=== PATIENT | female | born 1990 | race Caucasian/White ===

== ENCOUNTER 2020-08-02 08:56 | Outpatient (CLI) | payer OTHER, SELFPAY ==
--- NOTE | 2020-08-02 | ECG_ITS ---
Measurements Intervals [place] Rate: 95 P: 19 DC: 150 QRS: 9 QRSD: 88 T: 1 QT: 362 QTc: 457 Interpretive Statements SINUS RHYTHM VOLTAGE CRITERIA FOR LVH BORDERLINE T WAVE ABNORMALITY- INFERIOR LEADS BASELINE WANDER- I, II, III, AVR, AVL, AVF, V4-V6 BORDERLINE ECG Electronically Signed On 08-02-2020 9:59:53 CONTRACT NEGOTIATOR by Augie Hollins D.O.
[2020-08-02 09:44] LABS: Basophils Absolute Auto 0.1 K/mm3 (0.0-0.1); Eosinophils Absolute Auto 0.6 K/mm3 (0-0.3); Eosinophils Percent Auto 6.2 % (0-4.4); Hematocrit 40.9 % (37.0-47.0); Hemoglobin 12.6 g/dL (12.0-15.0); Immature Granulocyte Absolute 0.02 K/mm3 (0.00-0.031); Immature Granulocyte Percent A 0.2 % (0-0.5); Lymphocytes Absolute Auto 2.17 K/mm3 (0.9-3.2); Lymphocytes Percent Auto 23.3 % (18.3-44.2); Mean Corpuscular HGB Conc 30.8 g/dl (32-36); Mean Corpuscular Hemoglobin 23.8 pg (26-34); Mean Corpuscular Volume 77.3 fl (80-100); Monocytes Absolute Auto 0.6 K/mm3 (0.1-0.6); Monocytes Percent Auto 6.5 % (2.6-8.5); Neutrophils Absolute Auto 5.9 K/mm3 (1.3-6.7); Neutrophils Percent Auto 62.8 % (45.5-73.1); Platelet Count Result 302 k/mm3 (150-375); Red Blood Count 5.29 M/mm3 (4.2-5.4); Red Cell Distribution Width 18.8 % (11.5-14.5); White Blood Count 9.3 K/mm3 (4.5-10.0)
[2020-08-02 09:55] LABS: Hemoglobin A1C 6.6 % (<5.7)
[2020-08-02 09:56] LABS: Alanine Aminotransferase 62 U/L (4-35); Albumin Level 3.8 g/dL (3.5-5.1); Alkaline Phosphatase 94 U/L (38-126); Anion Gap 7 mmol/L (8-16); Aspartate Amino Transferase 89 U/L (14-36); Bilirubin,Total 0.5 mg/dL (0.2-1.3); Blood Urea Nitrogen 7 mg/dL (7-17); Calcium 8.9 mg/dL (8.4-10.2); Carbon Dioxide 23 mmol/L (22-30); Chloride 107 mmol/L (98-107); Cholesterol 182 mg/dL (0-200); Estimated Glomerular Filt Rate > 60; Glucose 155 mg/dL (65-105); HDL Direct 39 mg/dL; Potassium 4.2 mmol/L (3.4-5.0); Sodium 137 mmol/L (137-145); Triglycerides 116 mg/dL (<150)
[2020-08-02 10:07] LABS: LDL Cholesterol Direct 137 mg/dL
[2020-08-02 10:24] LABS: Vitamin D 25 Hydroxy 15.2 ng/mL
[2020-08-02 11:04] LABS: Free T4 Free Thyroxine Reflex 1.15 ng/dL (0.78-2.19)
[2020-08-02 13:27] LABS: Total Triiodothyronine (T3) 1.64 NG/ML (0.97-1.69)
[2020-08-05 06:00] LABS: LH 6.2 mIU/mL (***); Prolactin 10.2 ng/mL (***)
[2020-08-05 14:28] LABS: Testosterone Free 5.6 pg/mL (0.1-6.4); Testosterone Total 60 ng/dL (2-45)
== END 2020-08-02 08:57 | disposition home or self-care (01) ==
PROVIDERS: PCP Nurse Practitioner; Visit Provider Nurse Practitioner
DX: R00.2 Palpitations (principal); E55.9 Vitamin D deficiency, unspecified; R63.5 Abnormal weight gain; R94.31 Abnormal electrocardiogram [ECG] [EKG]
CPT/HCPCS: 36415; 80053; 80061; 82306; 83001; 83002; 83036; 84146; 84402; 84403; 84439; 84443; 84480; 85025; 93005

== ENCOUNTER 2021-05-19 18:45 | Inpatient (IN) | payer OTHER, SELFPAY ==
--- NOTE | ~2021-05-19 | CT_ITS ---
EXAMINATION: CT abdomen pelvis w con DATE: 05/22/2021 09:56 INDICATION: Left lower quadrant abdominal pain. Diverticulitis. TECHNIQUE: Computed tomography (CT) of the abdomen and pelvis was performed with 100 mL Omnipaque 350 intravenous contrast. Automated exposure control and iterative reconstruction technique were employe d. The dose-length product was 1652.01 mGy-cm. COMPARISON: CT abdomen and pelvis 05/19/2021 FINDINGS: The visualized portions of the lung bases demonstrate mild atelectasis. No pleural effusion . The heart size is normal. No pericardial effusion. The liver, gallbladder, spleen, pancreas, adrena l glands, and kidneys are normal. There are no dilated loops of bowel. There is wall thickening of th e sigmoid colon with surrounding fat stranding. 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 There is mil d left para-aortic lymphadenopathy, likely reactive. For example, a node measures 13 x 14 mm. There i s no free intraperitoneal fluid. There is moderate thoracic spondylosis and mild lumbar spondylosis. There is mild chronic anterior wedging of multiple thoracic vertebral bodies. IMPRESSION: 1. Sigmoid diverticulitis with microperforation with 3.3 x 2.6 x 4.0 cm perisigmoid abscess comprised of stool with fistula to the bowel lumen. Reviewed, dictated and finalized at location B. [employer] IMPRESSION: 1. Sigmoid diverticulitis with microperforation with 3.3 x 2.6 x 4.0 cm perisig moid abscess comprised of stool with fistula to the bowel lumen.
--- NOTE | ~2021-05-19 | CT_ITS ---
EXAMINATION: CT abdomen pelvis w con DATE: 05/19/2021 20:26 INDICATION: Left lower quadrant abdominal pain. Nausea. TECHNIQUE: Computed tomography (CT) of the abdomen and pelvis was performed with 100 mL Omnipaque-350 intravenous contrast. Automated exposure control and iterative reconstruction technique were employe d. The dose-length product was 1535.62 mGy-cm. COMPARISON: 09/10/2017 FINDINGS: Lung bases are clear. Heart size normal. No pericardial or pleural effusion. Diffuse hepatic steatosi s. Liver, spleen, pancreas, bilateral adrenal glands and kidneys are normal. Normal retrocecal append ix. There is prominent wall thickening along the sigmoid colon surrounding a couple diverticula with prominent position from trace stranding consistent with diverticulitis. There is suggestion of few ti ny foci of of extraluminal gas in the region of likely phlegmonous change situated between the affect ed sigmoid colon and the left ovary. No more remote free intraperineal gas or organized/drainable abs cess. Remainder of the bowels are normal. Bladder, anteverted uterus and right adnexa are unremarkabl e. No pathologically enlarged abdominal or pelvic lymphadenopathy. Chronic mild anterior wedging at T 10. Mild thoracolumbar spondylosis. There are bridging osteophytes at multiple levels in the lower th oracic spine consistent with diffuse idiopathic skeletal hyperostosis (DISH). IMPRESSION: 1. Sigmoid diverticulitis with microperforation region of phlegmonous change but without drainable ab scess. Reviewed, dictated and finalized at location A. [employer] CONSULTANT IMPRESSION: 1. Sigmoid diverticulitis with microperforation region of phlegmonous change bu t without drainable abscess.
[2021-05-19 18:50] VITALS: BP 158/84; PULSE 97; RESP 12; TEMP 36.1; O2SAT 98
[2021-05-19 19:08] LABS: Basophils Absolute Auto 0.1 K/mm3 (0.0-0.1); Basophils Percent Auto 0.4 % (0.2-1.2); Eosinophils Absolute Auto 0.1 K/mm3 (0-0.3); Eosinophils Percent Auto 0.6 % (0-4.4); Hematocrit 40.3 % (37.0-47.0); Hemoglobin 13.2 g/dL (12.0-15.0); Immature Granulocyte Absolute 0.09 K/mm3 (0.00-0.031); Immature Granulocyte Percent A 0.6 % (0-0.5); Lymphocytes Absolute Auto 1.75 K/mm3 (0.9-3.2); Lymphocytes Percent Auto 10.8 % (18.3-44.2); Mean Corpuscular HGB Conc 32.8 g/dl (32-36); Mean Corpuscular Hemoglobin 27.3 pg (26-34); Mean Corpuscular Volume 83.4 fl (80-100); Mean Platelet Volume 11.9 fl (7.4-10.4); Monocytes Absolute Auto 1.3 K/mm3 (0.1-0.6); Monocytes Percent Auto 7.9 % (2.6-8.5); Neutrophils Absolute Auto 12.9 K/mm3 (1.3-6.7); Neutrophils Percent Auto 79.7 % (45.5-73.1); Platelet Count Result 275 k/mm3 (150-375); Red Blood Count 4.83 M/mm3 (4.2-5.4); Red Cell Distribution Width 15.3 % (11.5-14.5); White Blood Count 16.2 K/mm3 (4.5-10.0)
[2021-05-19 19:19] LABS: Alanine Aminotransferase 45 U/L (4-35); Albumin Level 4.5 g/dL (3.5-5.1); Alkaline Phosphatase 106 U/L (38-126); Anion Gap 8 mmol/L (8-16); Aspartate Amino Transferase 41 U/L (14-36); Bilirubin,Total 0.7 mg/dL (0.2-1.3); Blood Urea Nitrogen 5 mg/dL (7-17); Calcium 9.4 mg/dL (8.4-10.2); Carbon Dioxide 25 mmol/L (22-30); Chloride 101 mmol/L (98-107); Estimated CRCL calculation 198 ml/min; Estimated Glomerular Filt Rate > 60; Glucose 146 mg/dL (65-110); Lipase 86 U/L (23-300); Potassium 3.8 mmol/L (3.4-5.0); Sodium 134 mmol/L (137-145)
--- NOTE | 2021-05-19 19:53 | ED.ABDPAIN ---
HPI - Abdominal Pain General Chief Complaint: Abdominal Pain Stated Complaint: abd pain Time Seen by Provider: 05/19/21 19:24 Source: patient History of Present Illness HPI narrative: Patient presents with lower abdominal pain. Reports symptoms present for the past 3 days pain is sharp predominantly on the left side associated with constipation and diarrhea. There is no clear aggravating or modifying factors. Pain does radiate to her back. She denies any urinary symptoms. She does report some nausea but no vomiting. Reports history of IBS she also reports a history of diverticulitis a few years ago which improved with antibiotics. Reports a symptoms are very similar to prior diverticulitis symptoms. Related Data Home Medications Medication Instructions Recorded Confirmed dicyclomine 10 mg PO QID PRN 05/19/21 05/19/21 metoprolol tartrate 12.5 mg PO BID 05/19/21 05/19/21 ondansetron 4 mg PO QID 05/19/21 05/19/21 Allergies Allergy/AdvReac Type Severity Reaction Status Date / Time No Known Allergies Allergy Unknown Verified 05/19/21 23:52 Review of Systems Review of Systems: CONSTITUTIONAL: Denies fever, chills, or sweats. EYES: Denies visual changes, redness, or discharge. ENT: Denies rhinorrhea, congestion, sore throat, or otalgia. CARDIOVASCULAR: Denies chest pain, palpitations, or edema. RESPIRATORY: Denies cough or dyspnea. GASTROINTESTINAL: Reports abdominal pain, nausea, diarrhea, constipation GENITOURINARY: Denies dysuria or hematuria. SKIN: Denies rash or itching. MUSCULOSKELETAL: Denies back pain, joint pain, or myalgia. NEUROLOGIC: Denies headache, numbness, dizziness, or weakness. PSYCHIATRIC: Denies anxiety or depression. All systems reviewed & are unremarkable except as noted in HPI and below PMFSH Past Medical History Medical History Anxiety and depression Diverticulitis Fatty liver Hypertension Social History Social History Smoking packs per day: 1 Smoking cigarettes per day: 20.0 Years smoked: 15 Smoking pack-years: 15.00 Tobacco type: e-cigarettes/vaping Additional smoking assessment comments: Patient states that she is now vaping the past 2 months with no nicotine Alcohol intake: current Drinks per week: 28 Substance use: current Substance use type: marijuana Spiritual care concerns: No Exam Narrative: GENERAL: Well-appearing, well-nourished, and in no acute distress. HEAD: Normocephalic, atraumatic. EYES: PERRLA and EOMI. ENT: Nares clear, no rhinorrhea or epistaxis. Mucous membranes moist. NECK: Supple. No masses. No JVD CHEST: Clear to auscultation. No respiratory distress. No wheezes rales or rhonchi HEART: Regular rate and rhythm. No murmur heard. Normal peripheral pulses. ABDOMEN: Moderate tenderness in the lower abdomen most prominent in the left lower quadrant soft,nondistended, EXTREMITIES: Normal range of motion. No edema. SKIN: Warm, dry, no rash. NEURO: No focal deficits. Alert and oriented x3. PSYCH: Normal mood and affect. Course Reevaluation(s) Reevaluation #1: Patient resting results and plan reviewed with patient. Given perforation she will be admitted for IV antibiotics. Patient is comfortable with outpatient plan. Date: 05/19/21 Time: 21:25 Vital Signs Vital signs: Vital Signs Temperature 36.1 C L 05/19/21 18:50 Pulse Rate 97 05/19/21 18:50 Respiratory Rate 12 05/19/21 18:50 Blood Pressure 158/84 H 05/19/21 18:50 Pulse Oximetry 98 05/19/21 18:50 Temperature 36.1 C L 05/19/21 23:37 Pulse Rate 77 05/19/21 23:37 Respiratory Rate 18 05/19/21 23:37 Blood Pressure 149/66 H 05/19/21 23:37 Pulse Oximetry 99 05/19/21 23:37 MDM - Abdominal Pain MDM Narrative Medical decision making narrative: Patient presented with lower abdominal pain similar to her prior diverticulitis. Labs and imaging obtai
[2021-05-19] MEDS: SODIUM CHLORIDE 0.9% IV 1,000 ML 999 ML IV CONT (19:57)
[2021-05-19] MEDS: ONDANSETRON INJ 4 MG/2 ML VIAL IV PUSH (19:58)
[2021-05-19 20:24] LABS: Add Urine Microscopic? YES; Appearance Urine Cloudy (Clear); Bilirubin Urine Negative (Negative); Blood Urine Negative (Negative); Color Urine Yellow (Yellow); Glucose Urine UA Negative (Negative); Ketones Urine Negative (Negative); Leukocyte Esterase Ur Negative LEU/UL (Negative); Mucus Urine Rare /lpf; Nitrate Urine Negative (Negative); Protein Urine Negative (Negative); RBC Urine 0-2 /hpf (0-2); Specific Grav Ur 1.023 (1.001-1.035); Squamous Epithelial Cell Urine Many /hpf (Few)
[2021-05-19 21:12] VITALS: BP 124/77; PULSE 73; RESP 20; TEMP 36.9; O2SAT 97
[2021-05-19 23:30] VITALS: BP 131/80; PULSE 73; RESP 18; O2SAT 97
[2021-05-19 23:37] VITALS: BP 149/66; PULSE 77; RESP 18; TEMP 36.1; O2SAT 99; BMI 62.1
--- NOTE | 2021-05-19 23:40 | ADMGEN ---
This patient, Shabana Matthews, was admitted to Medical Room 341-01. Patient/family oriented to hospital policies and general routines including ID bracelet, bed and alarms, visiting hours, pain management, procedures, bathroom and other care routines, personal items, smoking policy, room service/diet, and visiting hours. Information on how to activate the Rapid Response Team has been discussed. Patient/Family are encouraged to report perceived risks to care and to ask questions if they do not understand what they are told or what they should do.
[2021-05-19] MEDS: MORPHINE SULFATE (*CRX) 4 MG/ML INJ IV PUSH (23:44)
[2021-05-19] MEDS: SODIUM CHLORIDE 0.9% IV 1,000 ML 125 ML IV CONT (23:48)
[2021-05-20] VITALS (9 sets, daily range): BP systolic 124–149; BP diastolic 50–95; PULSE 73–97; RESP 16–18; TEMP 35.9–36.7; O2SAT 98–100
[2021-05-20] MEDS: MORPHINE SULFATE (*CRX) 4 MG/ML INJ IV PUSH ×3 (02:12→19:17)
[2021-05-20 05:42] LABS: Basophils Absolute Auto 0.1 K/mm3 (0.0-0.1); Basophils Percent Auto 0.4 % (0.2-1.2); Eosinophils Absolute Auto 0.2 K/mm3 (0-0.3); Eosinophils Percent Auto 1.3 % (0-4.4); Hematocrit 36.2 % (37.0-47.0); Hemoglobin 11.6 g/dL (12.0-15.0); Immature Granulocyte Absolute 0.07 K/mm3 (0.00-0.031); Immature Granulocyte Percent A 0.5 % (0-0.5); Lymphocytes Absolute Auto 2.01 K/mm3 (0.9-3.2); Lymphocytes Percent Auto 15.3 % (18.3-44.2); Mean Corpuscular Hemoglobin 27.6 pg (26-34); Mean Platelet Volume 12.2 fl (7.4-10.4); Monocytes Absolute Auto 1.2 K/mm3 (0.1-0.6); Monocytes Percent Auto 9.1 % (2.6-8.5); Neutrophils Absolute Auto 9.7 K/mm3 (1.3-6.7); Neutrophils Percent Auto 73.4 % (45.5-73.1); Platelet Count Result 199 k/mm3 (150-375); Red Blood Count 4.21 M/mm3 (4.2-5.4); Red Cell Distribution Width 15.4 % (11.5-14.5); White Blood Count 13.1 K/mm3 (4.5-10.0)
[2021-05-20 05:47] LABS: Alanine Aminotransferase 34 U/L (4-35); Albumin Level 3.5 g/dL (3.5-5.1); Alkaline Phosphatase 81 U/L (38-126); Anion Gap 7 mmol/L (8-16); Aspartate Amino Transferase 30 U/L (14-36); Bilirubin,Total 0.5 mg/dL (0.2-1.3); Blood Urea Nitrogen 4 mg/dL (7-17); Calcium 8.2 mg/dL (8.4-10.2); Carbon Dioxide 24 mmol/L (22-30); Chloride 102 mmol/L (98-107); Estimated CRCL calculation 197 ml/min; Estimated Glomerular Filt Rate > 60; Glucose 155 mg/dL (65-110); Potassium 3.7 mmol/L (3.4-5.0); Sodium 133 mmol/L (137-145)
[2021-05-20] MEDS: SODIUM CHLORIDE 0.9% IV 1,000 ML 125 ML IV CONT (08:18)
--- NOTE | 2021-05-20 09:37 | PM.IMHP ---
H&P: HPI History of Present Illness Date/Time: 05/20/21 09:37 Chief Complaint: Lower abdominal pain Narrative: this is a 31-year-old woman who presented to the emergency department last night with lower abdominal pain over the past several days. She states that her pain started Thursday night and progressively worsened. She has had what she thought was a low-grade fever, but never took her temperature. She has had irregular bowel movements alternating between constipation and diarrhea, but this is chronic. She denies any blood in her stool. She denies any dysuria or hematuria. Her pain has improved somewhat since being admitted last night. She is passing flatus. She does report a history of diverticulitis about 3 years ago. She was diagnosed with a CT in the emergency department, but this was acute uncomplicated diverticulitis at that time and she was discharged home with oral antibiotics. She has never had a colonoscopy. Review of Systems Review of Systems: All systems reviewed & are unremarkable except as noted in HPI and below Constitutional: Constitutional: Denies chills, Reports fever(s) and Reports other ( Eating a poor diet lately) Eyes: Eyes: Denies change in vision ENT: Denies hearing loss, Denies neck pain and Denies sore throat Cardiovascular: Cardiovascular: Denies chest pain and Denies dyspnea Respiratory: Respiratory: Denies cough, Denies dyspnea, Denies wheezing and Reports other ( has sleep apnea) Gastrointestinal: Gastrointestinal: Reports as per HPI Genitourinary: Genitourinary: Denies hematuria and Denies dysuria Musculoskeletal: Musculoskeletal: Denies arthralgias, Denies joint swelling and Denies neck pain Allergic/Immunologic: Allergic/Immunologic: Denies wheezing [facility] Past Medical History Medical History (Updated 05/20/21 @ 09:47 by Fredi Griffiths DO) Adult BMI 60.0-69.9 kg/sq m Anxiety and depression Fatty liver Hypertension Obstructive sleep apnea Family History Family History (Updated 05/20/21 @ 09:44 by Fredi Griffiths DO) Mother Peptic ulcer disease Social History Social History Smoking packs per day: 1 Smoking cigarettes per day: 20.0 Years smoked: 20 Smoking pack-years: 20.00 Smoking status: Current every day smoker Tobacco type: cigarettes Additional smoking assessment comments: patient states she is down to about 2 cigarettes a day now for a year Alcohol intake: current Drinks per week: 28 Substance use: current Substance use type: marijuana Spiritual care concerns: No Meds Home Medications and Allergies Home Medications Medication Instructions Recorded Confirmed Type dicyclomine 10 mg PO QID PRN 05/19/21 05/19/21 History metoprolol tartrate 12.5 mg PO BID 05/19/21 05/19/21 History ondansetron 4 mg PO QID 05/19/21 05/19/21 History Allergies Allergy/AdvReac Type Severity Reaction Status Date / Time No Known Allergies Allergy Unknown Verified 05/19/21 23:52 Vital Signs Vital Signs - 24 hr 05/19/21 18:50 05/19/21 21:12 05/19/21 23:30 Temperature 36.1 C L 36.9 C Pulse Rate 97 73 73 Respiratory Rate 12 20 18 Blood Pressure 158/84 H 124/77 131/80 Pulse Oximetry 98 97 97 05/19/21 23:37 05/20/21 00:00 05/20/21 04:23 Temperature 36.1 C L 36.1 C L 35.9 C L Pulse Rate 77 77 92 Respiratory Rate 18 18 16 Blood Pressure 149/66 H 149/66 H 149/95 H Pulse Oximetry 99 99 99 Exam Const: General: alert; No acute distress Orientation/consciousness: patient oriented x3 Limitations: no limitations HENMT: Head: normocephalic and atraumatic Ears: hearing grossly normal bilaterally General nose exam: Normal external nose present and Normal nares present Mouth: Yes Normal oral and palatal mucosa present and Yes moist mucous membranes Eyes: General: appearance normal, both eyes and all related structures Conjunctivae: conjunctivae normal Sclera: sclerae miky
[2021-05-20] MEDS: METOPROLOL TARTRATE 12.5 MG TABLET PO ×2 (10:07→20:32)
[2021-05-20] MEDS: ENOXAPARIN 40 MG/0.4 ML SYRINGE SUB-Q (10:37)
[2021-05-20] MEDS: SODIUM CHLORIDE 0.9% IV 1,000 ML 150 ML IV CONT (16:10)
[2021-05-21] VITALS (7 sets, daily range): BP systolic 135–149; BP diastolic 62–97; PULSE 74–87; RESP 16–20; TEMP 36.5–37.4; O2SAT 96–100
[2021-05-21] MEDS: SODIUM CHLORIDE 0.9% IV 1,000 ML 150 ML IV CONT (00:45)
[2021-05-21] MEDS: ONDANSETRON INJ 4 MG/2 ML VIAL IV PUSH ×3 (02:52→22:04)
[2021-05-21 06:14] LABS: Hematocrit 35.9 % (37.0-47.0); Hemoglobin 11.4 g/dL (12.0-15.0); Mean Corpuscular HGB Conc 31.8 g/dl (32-36); Mean Corpuscular Hemoglobin 27.1 pg (26-34); Mean Corpuscular Volume 85.3 fl (80-100); Mean Platelet Volume 12.3 fl (7.4-10.4); Platelet Count Result 219 k/mm3 (150-375); Red Blood Count 4.21 M/mm3 (4.2-5.4); Red Cell Distribution Width 15.1 % (11.5-14.5); White Blood Count 11.1 K/mm3 (4.5-10.0)
[2021-05-21 06:43] LABS: Anion Gap 6 mmol/L (8-16); Blood Urea Nitrogen 5 mg/dL (7-17); Calcium 8.6 mg/dL (8.4-10.2); Carbon Dioxide 24 mmol/L (22-30); Chloride 103 mmol/L (98-107); Estimated CRCL calculation 197 ml/min; Estimated Glomerular Filt Rate > 60; Glucose 125 mg/dL (65-110); Potassium 3.8 mmol/L (3.4-5.0); Sodium 133 mmol/L (137-145)
[2021-05-21] MEDS: SODIUM CHLORIDE 0.9% IV 1,000 ML 100 ML IV CONT ×2 (08:14→21:22)
[2021-05-21] MEDS: ENOXAPARIN 40 MG/0.4 ML SYRINGE SUB-Q (08:18)
[2021-05-21] MEDS: METOPROLOL TARTRATE 12.5 MG TABLET PO ×2 (08:18→21:20)
[2021-05-21] MEDS: MORPHINE SULFATE (*CRX) 4 MG/ML INJ IV PUSH ×2 (13:59→22:04)
--- NOTE | 2021-05-21 15:52 | PM.PNGS ---
Progress Note: A&P Assessment and Plan (1) Diverticulitis of large intestine with perforation without abscess or bleeding: Code(s): K57.20 - Diverticulitis of large intestine with perforation and abscess without bleeding Status: Acute Assessment and Plan: Will start patient on clear liquids today. Repeat CBC in a.m.. Possibly advanced diet slowly over the next 1-2 days if pain resolving and labs improving. Continue IV Zosyn. (2) Obstructive sleep apnea: Code(s): G47.33 - Obstructive sleep apnea (adult) (pediatric) Status: Chronic (3) Adult BMI 60.0-69.9 kg/sq m: Code(s): Z68.44 - Body mass index [BMI] 60.0-69.9, adult Status: Chronic Subjective Subjective Date/Time Seen: 05/21/21 15:52 Interval history: Pain improved, but still having a little bit of left lower quadrant pain and was also experiencing nausea this morning. Passing flatus and bowels moving. Feeling thirsty. Exam GI: Inspection: non-distended GI Palp: Yes Soft to palpation, Yes Tenderness to palpation present (GI) (Left lower quadrant) and No Guarding due to palpation present (GI) Objective Data Vital Signs Vital Signs: Vital Signs - 24 hr 05/20/21 16:02 05/20/21 20:00 05/20/21 20:02 Temperature 36.3 C L 36.7 C Pulse Rate 73 78 86 Respiratory Rate 18 18 18 Blood Pressure 147/95 H 124/50 L Pulse Oximetry 99 100 100 05/20/21 20:32 05/21/21 06:00 05/21/21 08:18 Temperature 37.4 C Pulse Rate 78 80 78 Respiratory Rate 16 Blood Pressure 138/71 Pulse Oximetry 98 05/21/21 14:00 Temperature 36.7 C Pulse Rate 77 Respiratory Rate 20 Blood Pressure 135/62 Pulse Oximetry 100 Intake/Output Intake/Output: Intake & Output 05/18/21 05/19/21 05/20/21 05/21/21 23:59 23:59 23:59 23:59 Intake Total 1150 3425 1540 Output Total 900 Balance 1150 2525 1540 Meds/Results Medications: Active Medications Generic Name Dose Route Start Last Admin Trade Name Freq PRN Reason Stop Dose Admin Enoxaparin Sodium 40 mg 05/20/21 09:50 05/21/21 08:18 Enoxaparin 40 Mg/0.4 Ml Syringe SUB-Q 40 mg DAILY ROBYN Administration Sodium Chloride 1,000 mls @ 100 mls/hr 05/19/21 21:55 05/21/21 08:14 Normal Saline Iv IV CONT 100 mls/hr .Q10H ROBYN Administration Piperacillin/Tazobactam/Dextrose 3.375 gm in 50 mls @ 100 mls/hr 05/20/21 04:00 05/21/21 10:25 Zosyn 3.375 Gm/D5w 50ml Pm IVPB Infused Q6H ROBYN Infusion Acetaminophen 1,000 mg in 100 mls @ 400 mls/hr 05/20/21 22:19 05/21/21 08:29 Ofirmev 1,000 Mg Ivpb IVPB 05/21/21 22:18 Infused Q6H PRN Infusion Pain Rated 4-6 Metoprolol Tartrate 12.5 mg 05/20/21 09:00 05/21/21 08:18 Metoprolol Tartrate 12.5 Mg Tablet PO 12.5 mg Q12HR ROBYN Administration Morphine Sulfate 4 mg 05/19/21 21:51 05/21/21 13:59 Morphine Sulfate (*Crx) 4 Mg/Ml Inj IV PUSH 4 mg Q2H PRN Administration Pain Rated 7-10 Ondansetron HCl 4 mg 05/19/21 21:51 05/21/21 13:59 Ondansetron Inj 4 Mg/2 Ml Vial IV PUSH 4 mg Q4H PRN Administration Nausea Radiology Results: ITS Impressions Abdomen/Pelvis CT 05/19/21 20:53 IMPRESSION: 1. Sigmoid diverticulitis with microperforation region of phlegmonous change but without drainable abscess. Labs Labs: Laboratory Results - last 24 hr 05/21/21 05/21/21 05:41 05:41 WBC 11.1 H RBC 4.21 Hgb 11.4 L Hct 35.9 L MCV 85.3 MCH 27.1 MCHC 31.8 L RDW 15.1 H Plt Count 219 MPV 12.3 H Sodium 133 L Potassium 3.8 Chloride 103 Carbon Dioxide 24 Anion Gap 6 L BUN 5 L Creatinine 0.60 L Estim Creat Clear Calc 197 Estimated GFR > 60 Glucose 125 H Calcium 8.6
[2021-05-22] MEDS: ONDANSETRON INJ 4 MG/2 ML VIAL IV PUSH ×2 (02:56→14:55)
[2021-05-22] MEDS: ACETAMINOPHEN 500 MG TABLET 1000 MG PO (02:57)
[2021-05-22 05:30] VITALS: BP 147/95; PULSE 84; RESP 18; TEMP 36.6; O2SAT 98
[2021-05-22 06:57] LABS: Mean Corpuscular HGB Conc 32.4 g/dl (32-36); Mean Corpuscular Hemoglobin 27.1 pg (26-34); Mean Corpuscular Volume 83.7 fl (80-100); Mean Platelet Volume 12.3 fl (7.4-10.4); Platelet Count Result 227 k/mm3 (150-375); Red Blood Count 4.06 M/mm3 (4.2-5.4); Red Cell Distribution Width 14.9 % (11.5-14.5); White Blood Count 9.1 K/mm3 (4.5-10.0)
[2021-05-22 07:07] LABS: Anion Gap 7 mmol/L (8-16); Blood Urea Nitrogen 4 mg/dL (7-17); Calcium 8.4 mg/dL (8.4-10.2); Carbon Dioxide 23 mmol/L (22-30); Chloride 106 mmol/L (98-107); Estimated CRCL calculation 197 ml/min; Estimated Glomerular Filt Rate > 60; Glucose 133 mg/dL (65-110); Potassium 3.5 mmol/L (3.4-5.0); Sodium 136 mmol/L (137-145)
--- NOTE | 2021-05-22 09:05 | PM.PNGS ---
Progress Note: A&P Assessment and Plan (1) Diverticulitis of large intestine with perforation without abscess or bleeding: Code(s): K57.20 - Diverticulitis of large intestine with perforation and abscess without bleeding Status: Acute Assessment and Plan: patient still having some cramping abdominal pain. Will get repeat CT abdomen and pelvis with contrast today. Discussed that if CT does not show any worsening signs, we should be able to advance diet and possibly discharge this evening. Dietitian evaluation ordered to discuss low-fiber diet and high-fiber diet will have patient follow-up in 2 weeks and will discuss eventual colonoscopy once completely recovered (2) Adult BMI 60.0-69.9 kg/sq m: Code(s): Z68.44 - Body mass index [BMI] 60.0-69.9, adult Status: Chronic (3) Obstructive sleep apnea: Code(s): G47.33 - Obstructive sleep apnea (adult) (pediatric) Status: Chronic Subjective Subjective Date/Time Seen: 05/22/21 09:05 Interval history: Patient is still having some cramping abdominal pain and anxiety. Bowels moving but have been very small. No fevers. Exam GI: Inspection: obesity GI Palp: Yes Soft to palpation and Yes Tenderness to palpation present (GI) ( Left lower quadrant) Auscultation: normal bowel sounds Objective Data Vital Signs Vital Signs: Vital Signs - 24 hr 05/21/21 14:00 05/21/21 20:00 05/21/21 21:20 Temperature 36.7 C Pulse Rate 77 77 74 Respiratory Rate 20 20 Blood Pressure 135/62 Pulse Oximetry 100 100 05/21/21 22:00 05/21/21 22:51 05/22/21 05:30 Temperature 36.5 C 36.6 C Pulse Rate 87 84 Respiratory Rate 16 18 Blood Pressure 149/97 H 147/95 H Pulse Oximetry 98 96 98 Intake/Output Intake/Output: Intake & Output 05/19/21 05/20/21 05/21/21 05/22/21 23:59 23:59 23:59 23:59 Intake Total 1150 3425 3430 410 Output Total 900 900 Balance 1150 2525 3430 -490 Meds/Results Medications: Active Medications Generic Name Dose Route Start Last Admin Trade Name Freq PRN Reason Stop Dose Admin Acetaminophen 1,000 mg 05/22/21 02:53 05/22/21 02:57 Acetaminophen 500 Mg Tablet PO 1,000 mg Q6H PRN Administration Mild Pain (1-3) or Fever Hydrocodone Bitart/Acetaminophen 1 tab 05/22/21 02:54 Hydrocodone/Acetaminophen (*Crx) 5-325 Mg Tablet PO Q6H PRN Pain Rated 4-6 Alprazolam 0.25 mg 05/22/21 09:04 Alprazolam (*Crx) 0.25 Mg Tablet PO TID PRN Anxiety Enoxaparin Sodium 40 mg 05/20/21 09:50 05/21/21 08:18 Enoxaparin 40 Mg/0.4 Ml Syringe SUB-Q 40 mg DAILY ROBYN Administration Piperacillin/Tazobactam/Dextrose 3.375 gm in 50 mls @ 100 mls/hr 05/20/21 04:00 05/22/21 05:40 Zosyn 3.375 Gm/D5w 50ml Pm IVPB Infused Q6H ROBYN Infusion Metoprolol Tartrate 12.5 mg 05/20/21 09:00 05/21/21 21:20 Metoprolol Tartrate 12.5 Mg Tablet PO 12.5 mg Q12HR ROBYN Administration Morphine Sulfate 4 mg 05/19/21 21:51 05/21/21 22:04 Morphine Sulfate (*Crx) 4 Mg/Ml Inj IV PUSH 4 mg Q2H PRN Administration Pain Rated 7-10 Ondansetron HCl 4 mg 05/19/21 21:51 05/22/21 02:56 Ondansetron Inj 4 Mg/2 Ml Vial IV PUSH 4 mg Q4H PRN Administration Nausea Radiology Results: ITS Impressions Abdomen/Pelvis CT 05/19/21 20:53 IMPRESSION: 1. Sigmoid diverticulitis with microperforation region of phlegmonous change but without drainable abscess. Labs Labs: Laboratory Results - last 24 hr 05/22/21 05/22/21 05:58 05:58 WBC 9.1 RBC 4.06 L Hgb 11.0 L Hct 34.0 L MCV 83.7 MCH 27.1 MCHC 32.4 RDW 14.9 H Plt Count 227 MPV 12.3 H Sodium 136 L Potassium 3.5 Chloride 106 Carbon Dioxide 23 Anion Gap 7 L BUN 4 L Creatinine 0.60 L Estim Creat Clear Calc 197 Estimated GFR > 60 Glucose 133 H Calcium 8.4
[2021-05-22] MEDS: ALPRAZolam (*CRX) 0.25 MG TABLET PO (09:22)
[2021-05-22] MEDS: polyethylene glycoL 3350 17 GM POWD.PACK PO (09:22)
[2021-05-22 09:23] VITALS: PULSE 86
[2021-05-22] MEDS: ENOXAPARIN 40 MG/0.4 ML SYRINGE SUB-Q (09:23)
[2021-05-22] MEDS: METOPROLOL TARTRATE 12.5 MG TABLET PO ×2 (09:23→20:17)
[2021-05-22 14:00] VITALS: BP 142/90; PULSE 70; RESP 16; TEMP 36.6; O2SAT 99
[2021-05-22] MEDS: HYDROcodone/acetaminophen (*CRX) 5-325 MG TABLET 1 TAB PO (14:54)
[2021-05-22 20:00] VITALS: PULSE 80; RESP 16; O2SAT 99
[2021-05-22 20:17] VITALS: PULSE 80
[2021-05-22 21:34] VITALS: BP 145/75; PULSE 71; RESP 17; TEMP 36.1; O2SAT 100
[2021-05-22] MEDS: AMOXICILLIN/CLAVULANATE K 875-125 MG TAB 1 TABLET PO (23:14)
[2021-05-23 04:44] VITALS: BP 133/70; PULSE 69; RESP 16; TEMP 36.5; O2SAT 97
[2021-05-23 05:49] LABS: Hematocrit 35.6 % (37.0-47.0); Hemoglobin 11.2 g/dL (12.0-15.0); Mean Corpuscular HGB Conc 31.5 g/dl (32-36); Mean Corpuscular Volume 85.8 fl (80-100); Mean Platelet Volume 11.3 fl (7.4-10.4); Platelet Count Result 238 k/mm3 (150-375); Red Blood Count 4.15 M/mm3 (4.2-5.4); Red Cell Distribution Width 15.2 % (11.5-14.5); White Blood Count 8.5 K/mm3 (4.5-10.0)
[2021-05-23 07:50] VITALS: BP 143/88; PULSE 73; RESP 24; TEMP 36.7; O2SAT 97
[2021-05-23] MEDS: METOPROLOL TARTRATE 12.5 MG TABLET PO (08:25)
[2021-05-23] MEDS: ENOXAPARIN 40 MG/0.4 ML SYRINGE SUB-Q (08:25)
[2021-05-23] MEDS: polyethylene glycoL 3350 17 GM POWD.PACK PO (08:25)
[2021-05-23] MEDS: AMOXICILLIN/CLAVULANATE K 875-125 MG TAB 1 TABLET PO (08:25)
[2021-05-23] MEDS: ACETAMINOPHEN 500 MG TABLET 1000 MG PO (08:32)
--- NOTE | 2021-05-23 10:17 | PM.DS ---
DS: Admitting Diagnosis Discharge Date 05/23/2021 Admitting Diagnosis acute diverticulitis with perforation DS: Discharge Diagnosis Discharge Diagnosis (1) Diverticulitis of intestine with perforation and abscess: Code(s): K57.80 - Diverticulitis of intestine, part unspecified, with perforation and abscess without bleeding Status: Acute Assessment and Plan: exam markedly improved since admission, tolerating low fiber, continue antibiotics, home with antibiotics, p.o. analgesia, Colace, follow-up 2 weeks, will need interval colonoscopy (2) Adult BMI 60.0-69.9 kg/sq m: Code(s): Z68.44 - Body mass index [BMI] 60.0-69.9, adult Status: Chronic Assessment and Plan: continue to encourage lifestyle and dietary modifications (3) Obstructive sleep apnea: Code(s): G47.33 - Obstructive sleep apnea (adult) (pediatric) Status: Chronic Assessment and Plan: management per PCP DS: Summary Hospital Course Reason for hospitalization: acute diverticulitis with perforation Hospital Course: The patient is a 31-year-old female presenting to the emergency department on 05/19 complaining of severe lower abdominal pain. Workup in the emergency department, including imaging, was significant for acute diverticulitis with micro perforation. The patient was subsequently admitted to the surgical service and started on IV antibiotics. Upon evaluation, it was decided that the patient would be a good candidate for conservative management. The patient did well with IV antibiotics and we were able to subsequently slowly advance her diet. The patient's abdominal exam continued to improve throughout her hospitalization. A subsequent CT scan was ordered on 05/22, and did show a small abscess but no worsening of micro perforation. Given this, we advanced her to a low residual diet. On 05/23, the patient was tolerating a low residual diet and her exam continued to be completely benign. Her white count was also noted to be normal and she was up and ambulating without issue. Given this, she will be discharged home with continued p.o. antibiotics. She will also be sent home with a prescription for p.o. analgesia and Colace. She will follow up with Dr. Griffiths in 2 weeks. Status at Discharge Functional status at discharge: independent ambulation Overall status at discharge: patient is progressing back to baseline Time Spent with Patient Time attestation: Total time spent providing and/or coordinating discharge services: Time spent: Less than 30 minutes Exam Const: General: cooperative, comfortable and no acute distress Nutritional Appearance: obese Orientation/consciousness: patient oriented x3 Resp: Effort & Inspection: normal respiratory effort Auscultation: clear to auscultation bilaterally Cardio: Rate: regular rate Rhythm: regular rhythm GI: Inspection: normal to inspection and distended GI Palp: Yes Soft to palpation, No Tenderness to palpation present (GI), No Guarding due to palpation present (GI) and No Rigid due to palpation DS: Data Data Completed and Pending Labs on day of discharge: Labs from last 24 hours 05/23/21 05:36 WBC 8.5 RBC 4.15 L Hgb 11.2 L Hct 35.6 L MCV 85.8 MCH 27.0 MCHC 31.5 L RDW 15.2 H Plt Count 238 MPV 11.3 H Discharge Plan Discharge Attending physician on discharge: Fredi Griffiths Discharging Clinician: Kenyetta Mendez Anticipated Discharge Date/Time: 05/23/21 10:13 Patient Disposition: Home, Self-Care Activity: as tolerated Diet: low fiber Patient Instructions: Antibiotic Form, How to Stop Smoking (DC), Pain Management (DC) Stand Alone Forms: General Discharge Information Follow-up/Referrals: Fredi Griffiths DO [Physician] - 2 Weeks Discharge Medications: New amoxicillin-pot clavulanate [Augmentin] 875-125 mg tablet 1 tablet PO Q12H Qty: 20 RF: 0 hydrocodone-acetaminophen 5-325 mg tablet 1
[2021-05-23] MEDS: HYDROcodone/acetaminophen (*CRX) 5-325 MG TABLET 1 TAB PO (10:58)
== END 2021-05-23 11:28 | disposition home or self-care (01) | DRG 244 ==
LOC: ANHED 21:27 → ANH3MED 23:10
PROVIDERS: Emergency Medicine; Admitting Provider Surgery; Emergency Provider Emergency Medicine; PCP Nurse Practitioner; Visit Provider Surgery
DX: K57.80 Diverticulitis of intestine, part unspecified, with perforation and abscess without bleeding (principal); G47.33 Obstructive sleep apnea (adult) (pediatric); F41.8 Other specified anxiety disorders; K76.0 Fatty (change of) liver, not elsewhere classified; I10 Essential (primary) hypertension; F17.290 Nicotine dependence, other tobacco product, uncomplicated; Z68.44 Body mass index [BMI] 60.0-69.9, adult
CPT/HCPCS: 36415; 74177; 80048; 80053; 81001; 81025; 83690; 85025; 85027; 96361; 96365; 96366; 96367; 96372; 96375; 96376; 99285; A9270; G0378; G0379; J0131; J1650; J2270; J2405; J2543; J7030; Q9967

== ENCOUNTER 2021-06-25 13:15 | Outpatient (CLI) | payer OTHER, SELFPAY ==
--- NOTE | ~2021-06-25 | CT_ITS ---
EXAMINATION: CT abdomen pelvis w con INDICATION: Diverticulitis of the intestine with perforation TECHNIQUE: Computed tomographic images of the abdomen and pelvis were obtained after the administrati on of 100 cc of Omnipaque 350 intravenous contrast. The dose-length product (DLP) was 1620.08 mGy-cm. Automated exposure control and iterative reconstruction technique were employed. COMPARISON: 05/22/2021 FINDINGS: The lung bases are clear. The heart size is normal. The liver, spleen, pancreas, gallbladde r, and adrenal glands are normal. The kidneys are unremarkable. There is persistent wall thickening o f the sigmoid colon without significant change. There is a persistent mass of stool abutting the sigm oid colon which measures approximately 4.0 x 3.7 cm. An adjacent defect is seen in the wall of the si gmoid colon. There is surrounding inflammatory change. Mild left para-aortic lymphadenopathy persists without significant change. The appendix is normal.. There is mild lumbar spondylosis. Chronic anter ior wedging is noted in multiple lower thoracic vertebral bodies. IMPRESSION: 1. 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 Reviewed, dictated and finalized at location F. K SHOP SUPERVISOR IMPRESSION: 1. Sigmoid diverticulitis with persistent but not significantly changed perisig moid abscess containing stool with fistula to the sigmoid lumen again identifie d.
== END 2021-06-25 13:16 | disposition home or self-care (01) ==
PROVIDERS: PCP Nurse Practitioner; Visit Provider Surgery
DX: K57.20 Diverticulitis of large intestine with perforation and abscess without bleeding (principal)
CPT/HCPCS: 74177; Q9967

== ENCOUNTER 2021-08-26 20:09 | Emergency (ER) | payer OTHER, SELFPAY ==
--- NOTE | ~2021-08-26 | XR_ITS ---
XR chest 2V DATE: 08/27/2021 00:01 INDICATION: Leukocytosis TECHNIQUE: PA and lateral views COMPARISON: 06/09/2019 2 view chest borderline FINDINGS: Normal heart size. No hilar or mediastinal enlargement. No pulmonary infiltrate or consolid ation, pleural effusion or pulmonary vascular congestion or pneumothorax. Degenerative spurring of the thoracic spine. Chronic mild anterior wedging of some lower thoracic juan manuel tebral bodies. IMPRESSION: No active cardiopulmonary disease Reviewed, dictated and finalized at location A. ER HAND
--- NOTE | ~2021-08-26 | CT_ITS ---
EXAMINATION: CT abdomen pelvis w con DATE: 08/26/2021 23:57 INDICATION: Left lower quadrant abdominal pain TECHNIQUE: Computed tomography (CT) of the abdomen and pelvis was performed with 100 CC Omnipaque 350 intravenous contrast. Automated exposure control and iterative reconstruction technique were employe d. Exam dose: 1722.97 mGy-cm total exam DLP. COMPARISON: 06/25/2021 CT abdomen pelvis FINDINGS: There is persistent prominent inflammatory change in the region of the sigmoid colon includ ing thickening of the sigmoid colon, perisigmoid inflammatory stranding and a fecal-containing absces s cavity which is approximately 2.7 x 3.3 cm dimension. There is mildly increased perisigmoid fluid a ccumulation since 06/25/2021. Diverticulosis of the sigmoid and descending colon. There are nondilated fluid containing small bowel segments with air-fluid levels, likely due to adyna edvin ileus. Normal appendix. Small fat-containing umbilical hernia. Normal heart size. No pericardial or pleural effusion. The lung bases are clear. The liver, gallbladder, bile ducts, pancreas, pancreatic duct, spleen, adrenal glands and kidneys are unremarkable. Diffuse idiopathic skeletal hyperostosis of the thoracic spine. IMPRESSION: Persistent sigmoid diverticulitis with thickening of the sigmoid colon, with surrounding inflammatory change, perisigmoid abscess and mildly increased fluid collection around the sigmoid co jose Reviewed, dictated and finalized at Location A. Reviewed, dictated and finalized at location A. ECTIONAL MAINTENANCE TECHNICIAN IMPRESSION: Persistent sigmoid diverticulitis with thickening of the sigmoid c olon, with surrounding inflammatory change, perisigmoid abscess and mildly incr eased fluid collection around the sigmoid colon
[2021-08-26 20:15] VITALS: BP 122/85; PULSE 106; RESP 17; TEMP 36.4; O2SAT 100
[2021-08-26 21:06] LABS: Basophils Absolute Auto 0.1 K/mm3 (0.0-0.1); Basophils Percent Auto 0.5 % (0.2-1.2); Eosinophils Absolute Auto 0.2 K/mm3 (0-0.3); Eosinophils Percent Auto 1.2 % (0-4.4); Hematocrit 33.5 % (37.0-47.0); Hemoglobin 10.4 g/dL (12.0-15.0); Immature Granulocyte Absolute 0.05 K/mm3 (0.00-0.031); Immature Granulocyte Percent A 0.4 % (0-0.5); Lymphocytes Absolute Auto 1.87 K/mm3 (0.9-3.2); Lymphocytes Percent Auto 14.4 % (18.3-44.2); Mean Corpuscular Volume 77.4 fl (80-100); Mean Platelet Volume 11.2 fl (7.4-10.4); Monocytes Absolute Auto 0.9 K/mm3 (0.1-0.6); Neutrophils Absolute Auto 9.9 K/mm3 (1.3-6.7); Neutrophils Percent Auto 76.5 % (45.5-73.1); Platelet Count Result 408 k/mm3 (150-375); Red Blood Count 4.33 M/mm3 (4.2-5.4)
[2021-08-26] MEDS: SODIUM CHLORIDE 0.9% IV 1,000 ML 999 ML IV CONT (22:11)
[2021-08-26] MEDS: fentaNYL CITRATE INJ (*CRX) 100 MCG/2 ML VIAL 50 MCG IV PUSH (22:12)
[2021-08-26] MEDS: ONDANSETRON INJ 4 MG/2 ML VIAL IV PUSH (22:13)
[2021-08-26 22:33] LABS: Alanine Aminotransferase 32 U/L (4-35); Albumin Level 3.6 g/dL (3.5-5.1); Alkaline Phosphatase 72 U/L (38-126); Anion Gap 9 mmol/L (8-16); Aspartate Amino Transferase 44 U/L (14-36); Bilirubin,Total 0.5 mg/dL (0.2-1.3); Blood Urea Nitrogen 8 mg/dL (7-17); Calcium 8.6 mg/dL (8.4-10.2); Carbon Dioxide 22 mmol/L (22-30); Chloride 104 mmol/L (98-107); Estimated CRCL calculation 190 ml/min; Estimated Glomerular Filt Rate > 60; Glucose 110 mg/dL (65-110); Lipase 27 U/L (23-300); Sodium 135 mmol/L (137-145)
[2021-08-26 22:57] LABS: Lactic Acid Reflex 1.1 mmol/L (0.7-2.1)
[2021-08-26 22:58] LABS: INR 1.2; Prothrombin Time 14.3 Seconds (11.1-14.7)
[2021-08-26 22:59] LABS: Partial Thromboplastin Time 37.3 SECONDS (22.3-36.8)
[2021-08-26 23:00] LABS: CRP 5.1 mg/dL (<1.0)
[2021-08-26 23:47] LABS: Add Urine Microscopic? YES; Appearance Urine Clear (Clear); Bilirubin Urine Negative (Negative); Blood Urine Negative (Negative); Color Urine Yellow (Yellow); Glucose Urine UA Negative (Negative); Ketones Urine Negative (Negative); Leukocyte Esterase Ur Negative LEU/UL (Negative); Mucus Urine Few /lpf; Nitrate Urine Negative (Negative); Protein Urine Negative (Negative); RBC Urine 0-2 /hpf (0-2); Specific Grav Ur 1.016 (1.001-1.035); Squamous Epithelial Cell Urine Many /hpf (Few); Urobilinogen Urine Negative mg/dL (<2.0); WBC Urine 0-3 /hpf
--- NOTE | 2021-08-27 00:41 | ED.ABDPAIN ---
HPI - Abdominal Pain General Chief Complaint: Abdominal Pain <Dona Alex APRN - Last Filed: 08/27/21 03:02> Stated Complaint: abd pain <Dona Alex APRN - Last Filed: 08/27/21 03:02> Time Seen by Provider: 08/26/21 20:45 <Dona Alex APRN - Last Filed: 08/27/21 03:02> Source: patient <Dnoa Alex APRN - Last Filed: 08/27/21 03:02> Mode of arrival: ambulatory <Dona Alex APRN - Last Filed: 08/27/21 03:02> Limitations: no limitations <Dona Alex APRN - Last Filed: 08/27/21 03:02> History of Present Illness HPI narrative: 31-year-old female with history significant for diverticulitis and abdominal abscess presents today with complaints of abdominal pain. Patient seen here by Dr. Griffiths who sent patient to [facility], Dr. Leyva. Per MDs note patient was to be on Augmentin and follow-up with him at [facility]. Patient presents today with increasing abdominal pain and states that she couldn't tolerate it anymore. Patient states she thinks that she had a fever about 2 weeks ago prior to starting the antibiotics. Patient also with complaints of nausea. <Dona Alex APRN - Last Filed: 08/27/21 03:02> Related Data Home Medications: Home Medications Medication Instructions Recorded Confirmed dicyclomine 10 mg PO QID PRN 05/19/21 07/11/21 metoprolol tartrate 12.5 mg PO BID 05/19/21 07/11/21 amoxicillin-pot clavulanate tablet PO BID 08/26/21 ondansetron PRN 08/26/21 <Dona Alex APRN - Last Filed: 08/27/21 03:02> Allergies/Adverse Reactions: Allergies Allergy/AdvReac Type Severity Reaction Status Date / Time No Known Allergies Allergy Unknown Verified 08/26/21 20:54 <Dona Alex APRN - Last Filed: 08/27/21 03:02> Review of Systems Review of Systems: CONSTITUTIONAL: Denies fever, chills, or sweats. EYES: Denies visual changes, redness, or discharge. ENT: Denies rhinorrhea, congestion, sore throat, or otalgia. CARDIOVASCULAR: Denies chest pain, palpitations, or edema. RESPIRATORY: Denies cough or dyspnea. GASTROINTESTINAL: Positive for abdominal pain and nausea. Denies vomiting, or diarrhea. GENITOURINARY: Denies dysuria or hematuria. SKIN: Denies rash or itching. MUSCULOSKELETAL: Denies back pain, joint pain, or myalgia. NEUROLOGIC: Denies headache, numbness, dizziness, or weakness. PSYCHIATRIC: Denies anxiety or depression. <Dona Alex APRN - Last Filed: 08/27/21 03:02> [facility] Past Medical History Medical History: Medical History Adult BMI 60.0-69.9 kg/sq m Anxiety and depression Fatty liver Hypertension Obstructive sleep apnea <Dona Alex APRN - Last Filed: 08/27/21 03:02> Family History Family History: Family History Mother Peptic ulcer disease <Dona Alex APRN - Last Filed: 08/27/21 03:02> Social History Social History: Social History Smoking packs per day: 1 Smoking cigarettes per day: 20.0 Years smoked: 20 Smoking pack-years: 20.00 Smoking status: Current every day smoker Tobacco type: cigarettes Additional smoking assessment comments: patient states she is down to about 2 cigarettes a day now for a year Alcohol intake: current Drinks per week: 28 Substance use: current Substance use type: marijuana Spiritual care concerns: No <Dona Alex APRN - Last Filed: 08/27/21 03:02> Exam Narrative: GENERAL: Well-appearing, well-nourished, and in no acute distress. HEAD: Normocephalic, atraumatic. EYES: PERRLA and EOMI. ENT: Nares clear, no rhinorrhea or epistaxis. Mucous membranes moist. Oropharynx without tonsillar hypertrophy exudate or other lesions. Bilateral TMs pearly carvalho nonbulging NECK: Supple. No adenopathy or masses. No carotid bruits or JVD CHEST: Clear to auscultation. No respiratory
[2021-08-27] MEDS: fentaNYL CITRATE INJ (*CRX) 100 MCG/2 ML VIAL 50 MCG IV PUSH (01:19)
[2021-08-27] MEDS: METOCLOPRAMIDE HCL INJ 10 MG/2 ML VIAL IV PUSH (01:19)
--- NOTE | 2021-08-27 01:29 | PC.NURSE ---
0052: PATIENT ACCEPTED TO [facility]. DIRECT ADMIT. WAITING FOR CALL FROM [facility] WITH BED ASSIGNMENT.
[2021-08-27] MEDS: SODIUM CHLORIDE 0.9% IV 1,000 ML 100 ML IV CONT (01:33)
[2021-08-27 01:52] VITALS: BP 118/54; PULSE 89; RESP 18; O2SAT 97
--- NOTE | 2021-08-27 02:46 | PC.NURSE ---
Spoke to Kristie @ [facility] transfer center [phone]; patient pending COVID results prior to bed assignment; Covid swab in lab.
[2021-08-27 03:39] LABS: SARS-CoV-2 RNA PCR Negative
[2021-08-27] MEDS: ONDANSETRON INJ 4 MG/2 ML VIAL IV PUSH (04:27)
[2021-08-27] MEDS: MORPHINE SULFATE (*CRX) 2 MG/ML INJ IV PUSH (04:27)
[2021-08-27 04:33] VITALS: BP 122/60; PULSE 86; RESP 18; TEMP 37.2; O2SAT 98
--- NOTE | 2021-08-27 05:10 | PC.NURSE ---
spoke with tod at [facility]. she was informed that covid swab is negative
[2021-08-27 06:11] VITALS: BP 127/69; PULSE 72; RESP 18; O2SAT 95
--- NOTE | 2021-08-27 10:00 | PC.NURSE ---
pt becoming impatient due to still waiting on bed for transfer to [place]. Pt stated wants to leave am. notified to speak with pt.
== END 2021-08-27 10:14 | disposition left against medical advice (07) ==
PROVIDERS: Emergency Medicine; Nurse Practitioner Family; Emergency Provider Emergency Medicine
DX: K57.20 Diverticulitis of large intestine with perforation and abscess without bleeding (principal); Z20.822 Contact with and (suspected) exposure to COVID-19; I10 Essential (primary) hypertension; G47.33 Obstructive sleep apnea (adult) (pediatric); F17.210 Nicotine dependence, cigarettes, uncomplicated
CPT/HCPCS: 36415; 71046; 74177; 80053; 81001; 81025; 83605; 83690; 85025; 85610; 85730; 86140; 87040; 96361; 96365; 96366; 96374; 96375; 99284; C9803; J2270; J2405; J2543; J2765; J3010; J7030; Q9967; U0003; U0005

== ENCOUNTER 2021-11-04 13:22 | Emergency (ER) | payer OTHER, SELFPAY ==
[2021-11-04] VITALS (25 sets, daily range): BP systolic 108–151; BP diastolic 79–93; PULSE 76–99; RESP 14–36; TEMP 36.2; O2SAT 86–100
--- NOTE | ~2021-11-04 | CT_ITS ---
EXAMINATION: CT abdomen pelvis w con DATE: 11/04/2021 16:43 INDICATION: h/o diverticulitis s/p colostomy now n/v, no BM TECHNIQUE: Computed tomography (CT) of the abdomen and pelvis was performed with 100 mL Omnipaque-100 intravenous contrast. Automated exposure control and iterative reconstruction technique were employe d. The dose-length product was 1834.73 mGy-cm. COMPARISON: None FINDINGS: Lower thorax: Prominent bibasilar scar/atelectasis. Liver: Normal. Biliary/Gallbladder: No bile duct dilation. Spleen: Normal. Pancreas: No mass or duct dilation. Adrenals:No mass. Kidneys: No mass, stone, or hydronephrosis. GI tract: No small or large bowel dilation. Appendix not confidently visualized. Left lower quadrant colostomy. Mesentery/Peritoneum: Minimal lower peritoneal inflammatory change and fluid. Retroperitoneum: No mass.. Pelvis: Bladder drained by a Santana catheter. Simple right ovarian cysts. Mild free pelvic fluid and i nflammation. Soft Tissues: Midline incision, with subcutaneous fluid and gas. Bones: No acute osseous finding. IMPRESSION: Inflammatory abdominal wall and pelvic changes likely related to resolving postsurgical change, depelsa ding on the time course. Early abscess formation is not excluded and that determination would be aide d by the use of oral contrast. Reviewed, dictated and finalized at location K. IMPRESSION: Inflammatory abdominal wall and pelvic changes likely related to resolving post surgical change, depending on the time course. Early abscess formation is not e xcluded and that determination would be aided by the use of oral contrast.
--- NOTE | ~2021-11-04 | XR_ITS ---
EXAMINATION: XR chest 2V DATE: 11/04/2021 13:46 INDICATION: Chest tightness TECHNIQUE: AP and lateral views of the chest are obtained. COMPARISON: 08/26/2021 FINDINGS: There is mild atelectasis of the lung bases. There is no pleural effusion or pneumothorax. The cardiomediastinal silhouette is normal. There is moderate thoracic spondylosis. IMPRESSION: 1. Mild atelectasis of the lung bases. Reviewed, dictated and finalized at location A.
--- NOTE | 2021-11-04 13:28 | ECG_ITS ---
Measurements Intervals [place] Rate: 81 P: 13 HI: 161 QRS: 4 QRSD: 86 T: 5 QT: 384 QTc: 446 Interpretive Statements SINUS RHYTHM VOLTAGE CRITERIA FOR LVH BORDERLINE T WAVE ABNORMALITY- ANT/INF LEADS BASELINE ARTIFACT- I, II, AVR, AVF BORDERLINE ECG Electronically Signed On 11-04-2021 20:13:06 CDT by Augie Hollins D.O.
[2021-11-04 13:49] LABS: Basophils Absolute Auto 0.1 K/mm3 (0.0-0.1); Basophils Percent Auto 0.8 % (0.2-1.2); Eosinophils Absolute Auto 0.3 K/mm3 (0-0.3); Eosinophils Percent Auto 3.8 % (0-4.4); Hematocrit 28.8 % (37.0-47.0); Hemoglobin 8.2 g/dL (12.0-15.0); Immature Granulocyte Absolute 0.05 K/mm3 (0.00-0.031); Immature Granulocyte Percent A 0.6 % (0-0.5); Lymphocytes Absolute Auto 1.57 K/mm3 (0.9-3.2); Lymphocytes Percent Auto 19.7 % (18.3-44.2); Mean Corpuscular HGB Conc 28.5 g/dl (32-36); Mean Corpuscular Hemoglobin 22.5 pg (26-34); Mean Corpuscular Volume 78.9 fl (80-100); Mean Platelet Volume 10.6 fl (7.4-10.4); Monocytes Absolute Auto 0.5 K/mm3 (0.1-0.6); Monocytes Percent Auto 6.3 % (2.6-8.5); Neutrophils Absolute Auto 5.5 K/mm3 (1.3-6.7); Neutrophils Percent Auto 68.8 % (45.5-73.1); Platelet Count Result 507 k/mm3 (150-375); Red Blood Count 3.65 M/mm3 (4.2-5.4); Red Cell Distribution Width 20.5 % (11.5-14.5)
[2021-11-04 14:04] LABS: Alanine Aminotransferase 22 U/L (6-35); Albumin Level 3.4 g/dL (3.5-5.1); Alkaline Phosphatase 92 U/L (38-126); Anion Gap 8 mmol/L (8-16); Aspartate Amino Transferase 39 U/L (14-36); Bilirubin,Total 0.3 mg/dL (0.2-1.3); Blood Urea Nitrogen 14 mg/dL (7-17); Calcium 9.1 mg/dL (8.4-10.2); Carbon Dioxide 24 mmol/L (22-30); Chloride 105 mmol/L (98-107); Estimated CRCL calculation 152 ml/min; Estimated Glomerular Filt Rate > 60; Glucose 105 mg/dL (65-110); Lipase 79 U/L (23-300); Potassium 3.7 mmol/L (3.4-5.0); Sodium 137 mmol/L (137-145)
[2021-11-04 14:05] LABS: Anisocytosis 1+ (NORMAL); Hypochromasia 1+ (NORMAL)
[2021-11-04 14:12] LABS: INR 1.1; Prothrombin Time 13.7 Seconds (11.1-14.7)
[2021-11-04 14:13] LABS: Partial Thromboplastin Time 41.1 SECONDS (22.3-36.8)
[2021-11-04 14:15] LABS: Troponin I < 0.012 ng/mL (0.000-0.034)
[2021-11-04 14:42] LABS: Appearance Urine Clear (Clear); Bilirubin Urine Negative (Negative); Blood Urine 2+ (Negative); Color Urine Yellow (Yellow); Glucose Urine UA Negative (Negative); Ketones Urine Negative (Negative); Leukocyte Esterase Ur Trace LEU/UL (Negative); Nitrate Urine Negative (Negative); Protein Urine Trace mg/dL (Negative); Specific Grav Ur 1.015 (1.001-1.035); Urobilinogen Urine 0.2 mg/dL (<2.0)
[2021-11-04] MEDS: ONDANSETRON INJ 4 MG/2 ML VIAL IV PUSH (14:49)
[2021-11-04] MEDS: LACTATED RINGERS 1,000 ML 999 ML IV CONT (14:50)
[2021-11-04 14:52] LABS: Bacteria Urine Trace /hpf; RBC Urine 21-50 /hpf (0-2)
[2021-11-04 15:01] LABS: Add Urine Microscopic? YES
[2021-11-04] MEDS: MORPHINE SULFATE (*CRX) 4 MG/ML INJ IV PUSH (16:04)
[2021-11-04 17:15] LABS: Troponin I < 0.012 ng/mL (0.000-0.034)
[2021-11-04] MEDS: LORazepam INJ (*CRX) 2 MG/ML VIAL 0.5 MG IV PUSH (17:43)
--- NOTE | 2021-11-04 18:09 | ED.ABDPAIN ---
HPI - Abdominal Pain General Chief Complaint: Chest Pain Stated Complaint: constipation/post op Time Seen by Provider: 11/04/21 14:31 History of Present Illness HPI narrative: 31-year-old female with recent surgery/colostomy for diverticulitis presents here with some abdominal pain and feeling of pressure, and decreased ostomy output. Endorses some nausea but no vomiting. No fevers. Pertinent past history: constipation and diverticulitis Onset (ago): day(s) Pain Consistency: intermittent Location: epigastric and periumbilical Severity: moderate Quality: fullness Associated symptoms: nausea and constipation Related Data Home Medications Medication Instructions Recorded Confirmed metoprolol tartrate 12.5 mg PO BID 05/19/21 07/11/21 aripiprazole 2 mg DAILY 11/04/21 cyclobenzaprine 10 mg TID 11/04/21 famotidine 20 mg DAILY 11/04/21 ferrous sulfate 324 mg PO DAILY 11/04/21 oxybutynin chloride 5 mg PO 11/04/21 oxycodone 10 mg Q4H PRN 11/04/21 Allergies Allergy/AdvReac Type Severity Reaction Status Date / Time No Known Allergies Allergy Unknown Verified 11/04/21 14:27 Review of Systems Review of Systems: All systems reviewed & are unremarkable except as noted in HPI and below PMFSH Past Medical History Medical History (Updated 11/04/21 @ 18:12 by Dee Miranda MD) Adult BMI 60.0-69.9 kg/sq m Anxiety and depression Colostomy in place Fatty liver Hypertension Obstructive sleep apnea Family History Family History Mother Peptic ulcer disease Social History Social History Smoking packs per day: 1 Smoking cigarettes per day: 20.0 Years smoked: 20 Smoking pack-years: 20.00 Smoking status: Current every day smoker Tobacco type: cigarettes Additional smoking assessment comments: patient states she is down to about 2 cigarettes a day now for a year Alcohol intake: current Drinks per week: 28 Substance use: current Substance use type: marijuana Spiritual care concerns: No Exam Narrative: EXAMINATION OF ORGAN SYSTEMS/BODY AREAS: Constitutional: Vital signs per nursing GENERAL: Uncomfortable HEAD: Normal with no signs of head trauma. EYES: EOMI, conjunctiva normal ENT: Hearing grossly intact LUNGS: Nonlabored breathing. HEART: [Regular rate and rhythm] ABD: [Soft], [tender to palpation]. Ostomy in place, tiffany in place, incision clean dry and intact EXT: Normal range of motion SKIN: [No rashes or lesions.] NEURO: [Alert and oriented x 3. No gross focal sensory or strength deficits.] PSYCH: Normal affect Course Course Emergency Course: 31-year-old female with history of recent GI surgery for diverticulitis presents with abdominal pain, vital signs stable, exam shows soft abdomen that is tender to palpation diffusely, uncomfortable appearing patient. I have low concern for ACS/[place] without risk factors, pneumonia or PE with normal vitals, I suspect likely postsurgical pain versus ileus versus infection, labs are normal, without leukocytosis, and CT abdomen pelvis shows postoperative changes with possible early abscess. Case discussed with her surgeon at [facility], as patient is now asymptomatic, tolerating p.o., with normal labs and nonspecific CT, we do agree she can likely be discharged home, and patient would like to go home at this time. Return precautions provided and she should follow-up with her surgeon. Vital Signs Vital signs: Vital Signs Temperature 97.1 F L 11/04/21 13:54 Pulse Rate 87 11/04/21 13:54 Respiratory Rate 15 11/04/21 13:54 Blood Pressure 151/79 H 11/04/21 13:54 Pulse Oximetry 100 11/04/21 13:54 Temperature 97.1 F L 11/04/21 13:54 Pulse Rate 87 11/04/21 13:54 Respiratory Rate 15 11/04/21 13:54 Blood Pressure 151/79 H 11/04/21 13:54 Pulse Oximetry 100 11/04/21 13:54 MDM - Abdominal Pain Differential Diagnosis Differ
== END 2021-11-04 18:55 | disposition home or self-care (01) ==
PROVIDERS: Emergency Medicine; Emergency Provider Emergency Medicine
DX: G89.18 Other acute postprocedural pain (principal); R10.13 Epigastric pain; I10 Essential (primary) hypertension; G47.33 Obstructive sleep apnea (adult) (pediatric); F41.9 Anxiety disorder, unspecified; F32.A Depression, unspecified; F17.210 Nicotine dependence, cigarettes, uncomplicated; Z93.3 Colostomy status; R94.31 Abnormal electrocardiogram [ECG] [EKG]
CPT/HCPCS: 36415; 71046; 74177; 80053; 81001; 81025; 83690; 84484; 85025; 85610; 85730; 93005; 96361; 96374; 96375; 99284; J2060; J2270; J2405; J7120; Q9967

== ENCOUNTER 2021-11-11 11:01 | Emergency (ER) | payer OTHER, SELFPAY ==
[2021-11-11] VITALS (17 sets, daily range): BP systolic 118–145; BP diastolic 74–92; PULSE 74–78; RESP 16; TEMP 36.3–36.8; O2SAT 97–100
--- NOTE | ~2021-11-11 | CT_ITS ---
EXAMINATION: CT abdomen pelvis wo con DATE: 11/11/2021 14:12 INDICATION: Abdominal pain. Abdominal distention. TECHNIQUE: Computed tomography (CT) of the abdomen and pelvis was performed without intravenous contr ast. Automated exposure control and iterative reconstruction technique were employed. The dose-length product was 1659.68 mGy-cm. COMPARISON: CT abdomen and pelvis 11/04/2021 FINDINGS: The visualized portions of the lung bases demonstrate mild atelectasis. No pleural effusion . The heart size is normal. No pericardial effusion. The liver, gallbladder, spleen, pancreas, adrena l glands, and kidneys are normal. There is no urolithiasis. A Lacie pouch is noted. There is an en d colostomy in left abdomen. There is fat stranding in the inferior abdomen. The appendix is partiall y obscured. There is trace pelvic ascites. There is a midline surgical incision in anterior abdominal wall. Again seen are hypodense chronic hematomas in the incision measuring up to 5.3 x 4.5 cm. Again seen is a hyperdense subacute hematoma in the incision measuring 3.2 x 1.8 cm. There is chronic ante rior wedging of multiple vertebral bodies. There is moderate thoracolumbar spondylosis. IMPRESSION: 1. Unchanged subacute and chronic hematomas in the midline incision in the anterior abdominal wall. 2. Fat stranding in the inferior abdomen, consistent with inflammation. Reviewed, dictated and finalized at location B. IMPRESSION: 1. Unchanged subacute and chronic hematomas in the midline incision in the ante rior abdominal wall. 2. Fat stranding in the inferior abdomen, consistent with inflammation.
--- NOTE | 2021-11-11 12:26 | ED.ABDPAIN ---
HPI - Abdominal Pain General Chief Complaint: Abdominal Pain Stated Complaint: Constipation with Colostomy Time Seen by Provider: 11/11/21 11:50 Source: patient History of Present Illness HPI narrative: 31 y/o female presents to the ER today for complaints of abdominal distention and feeling constipation. She has a new colostomy. She had diverticulitis in September requiring a bowel resection and placement of colostomy. Since then she has had some wound dehisence of the surgical site and has been getting packing to these wounds by [facility] home health nurses. She says that stool coming from her colostomy is firm and is not moving much over the past 24 hours. She has felt distended and uncomfortable in her abdomen. Her abdominal pain feels about the same since she had the surgery. She took 2 half doses of miralax over the past 24 hours but has not helped much. No nause or vomiting. No fever or chills. Related Data Home Medications Medication Instructions Recorded Confirmed metoprolol tartrate 12.5 mg PO BID 05/19/21 07/11/21 aripiprazole 2 mg DAILY 11/04/21 cyclobenzaprine 10 mg TID 11/04/21 famotidine 20 mg DAILY 11/04/21 ferrous sulfate 324 mg PO DAILY 11/04/21 oxybutynin chloride 5 mg PO 11/04/21 oxycodone 10 mg Q4H PRN 11/04/21 Allergies Allergy/AdvReac Type Severity Reaction Status Date / Time No Known Allergies Allergy Unknown Verified 11/04/21 14:27 Review of Systems Constitutional: Constitutional: Denies chills, Denies fatigue, Denies fever(s) and Denies weakness ENT: Denies nasal congestion and Denies sore throat Cardiovascular: Cardiovascular: Denies chest pain Respiratory: Respiratory: Denies chest congestion, Denies cough, Denies dyspnea and Denies wheezing Gastrointestinal: Gastrointestinal: Reports abdominal pain, Reports bloating, Reports constipation, Denies diarrhea, Denies nausea and Denies vomiting Genitourinary: Genitourinary: Reports no additional female genitourinary complaints Musculoskeletal: Musculoskeletal: Denies back pain and Denies myalgias Integumentary/Breasts: Skin/Breast: Denies rash Neurologic: Denies dizziness, Denies syncope, Denies focal weakness and Denies numbness Psychiatric: Psychiatric: Reports anxiety Endocrine: Endocrine: Reports no additional endocrine complaints Hematologic/Lymphatic: Hematologic/Lymphatic: Reports no additional hematologic/lymphatic complaints Allergic/Immunologic: Allergic/Immunologic: Reports no additional allergic/immunologic complaints [facility] Past Medical History Medical History Adult BMI 60.0-69.9 kg/sq m Anxiety and depression Colostomy in place Fatty liver Hypertension Obstructive sleep apnea Family History Family History Mother Peptic ulcer disease Social History Social History Smoking packs per day: 1 Smoking cigarettes per day: 20.0 Years smoked: 20 Smoking pack-years: 20.00 Smoking status: Current every day smoker Tobacco type: cigarettes Additional smoking assessment comments: patient states she is down to about 2 cigarettes a day now for a year Alcohol intake: current Drinks per week: 28 Substance use: current Substance use type: marijuana Spiritual care concerns: No Exam Const: General: no acute distress and alert Nutritional Appearance: obese Orientation/consciousness: patient oriented x3 Eyes: Conjunctivae: conjunctivae normal Neck: Neck: normal visual inspection Chest: Chest palpation & inspection: normal inspection of the chest Resp: Effort & Inspection: normal respiratory effort Auscultation: clear to auscultation bilaterally Cardio: Rate: regular rate Rhythm: regular rhythm GI: Auscultation: normal bowel sounds Other: colostomy bag in place firmly formed stool protruding from the stoma, dressings in place
[2021-11-11 12:57] LABS: Basophils Absolute Auto 0.1 K/mm3 (0.0-0.1); Basophils Percent Auto 0.8 % (0.2-1.2); Eosinophils Absolute Auto 0.3 K/mm3 (0-0.3); Eosinophils Percent Auto 4.1 % (0-4.4); Hematocrit 31.8 % (37.0-47.0); Hemoglobin 9.1 g/dL (12.0-15.0); Immature Granulocyte Absolute 0.02 K/mm3 (0.00-0.031); Immature Granulocyte Percent A 0.3 % (0-0.5); Lymphocytes Absolute Auto 1.85 K/mm3 (0.9-3.2); Lymphocytes Percent Auto 28.2 % (18.3-44.2); Mean Corpuscular HGB Conc 28.6 g/dl (32-36); Mean Corpuscular Hemoglobin 22.6 pg (26-34); Mean Corpuscular Volume 78.9 fl (80-100); Mean Platelet Volume 10.3 fl (7.4-10.4); Monocytes Absolute Auto 0.5 K/mm3 (0.1-0.6); Monocytes Percent Auto 6.9 % (2.6-8.5); Neutrophils Absolute Auto 3.9 K/mm3 (1.3-6.7); Neutrophils Percent Auto 59.7 % (45.5-73.1); Platelet Count Result 458 k/mm3 (150-375); Red Blood Count 4.03 M/mm3 (4.2-5.4); Red Cell Distribution Width 20.3 % (11.5-14.5); White Blood Count 6.6 K/mm3 (4.5-10.0)
[2021-11-11 13:10] LABS: Alanine Aminotransferase 23 U/L (6-35); Albumin Level 4.1 g/dL (3.5-5.1); Alkaline Phosphatase 76 U/L (38-126); Anion Gap 8 mmol/L (8-16); Aspartate Amino Transferase 35 U/L (14-36); Bilirubin,Total 0.3 mg/dL (0.2-1.3); Blood Urea Nitrogen 15 mg/dL (7-17); Calcium 9.1 mg/dL (8.4-10.2); Carbon Dioxide 23 mmol/L (22-30); Chloride 106 mmol/L (98-107); Estimated Glomerular Filt Rate > 60; Glucose 93 mg/dL (65-110); Lactic Acid Reflex 0.6 mmol/L (0.7-2.0); Lipase 74 U/L (23-300); Potassium 3.8 mmol/L (3.4-5.0); Sodium 137 mmol/L (137-145)
[2021-11-11 13:17] LABS: Hypochromasia 1+ (NORMAL); Platelet Estimate Adequate (Adequate)
[2021-11-11 13:18] LABS: Anisocytosis 1+ (NORMAL); Atypical Lymphocytes Present
[2021-11-11] MEDS: LORazepam INJ (*CRX) 2 MG/ML VIAL 1 MG IV PUSH (13:43)
[2021-11-11] MEDS: SODIUM CHLORIDE 0.9% IV 1,000 ML 999 ML IV CONT (13:44)
--- NOTE | 2021-11-11 14:20 | PC.NURSE ---
ATIVAN ORDERED BY ERP AND GIVEN FOR ANXIETY. PT ANXIOUS RPEORTS ANXIETY D/O HISTORY
--- NOTE | 2021-11-11 15:58 | PC.NURSE ---
COLOSTOMY BAG CHANGED, LARGE HARD STOOL PRESENT N BAG. STOMA BEEF RED NOT BREAKDOWN NOTED AROUND STOMA FROM ADHESIVE NOTD. OPEN WOUNDS PACKED WITH SALINE SOAKED 4X4, THEN COVERED WITH TELFA AND ABD PAD
== END 2021-11-11 17:09 | disposition home or self-care (01) ==
PROVIDERS: Emergency Provider Nurse Practitioner Family
DX: K59.01 Slow transit constipation (principal); R10.84 Generalized abdominal pain; T81.30XA Disruption of wound, unspecified, initial encounter; I10 Essential (primary) hypertension; G47.33 Obstructive sleep apnea (adult) (pediatric); Z93.3 Colostomy status; F17.210 Nicotine dependence, cigarettes, uncomplicated; Z90.49 Acquired absence of other specified parts of digestive tract
CPT/HCPCS: 36415; 74176; 80053; 83605; 83690; 85025; 96361; 96374; 99284; J2060; J7030

== ENCOUNTER 2021-12-02 15:56 | Emergency (ER) | payer OTHER, SELFPAY ==
--- NOTE | ~2021-12-02 | CT_ITS ---
EXAMINATION: CT abdomen pelvis wo con DATE: 12/02/2021 17:19 INDICATION: Abdomen pain and bloating for one week. Abdomen surgery on 10/25/2021 TECHNIQUE: Computed tomography (CT) of the abdomen and pelvis was performed without intravenous contr ast. The dose-length product was 1657.91 mGy-cm. Automated exposure control and iterative reconstruct ion technique were employed. COMPARISON: CT dated 11/11/2021. FINDINGS: There is left lower lobe atelectasis. No significant pleural or pericardial effusion. Heart size norm al. There are postsurgical changes consistent with recent surgery. There is a small fluid collection anterior abdominal wall below the umbilicus with mild surrounding inflammation, most likely postopera tive hematoma/seroma. This is slightly smaller than on prior examination. There is an end colostomy i n the left abdomen. The liver, spleen, pancreas, adrenal glands and kidneys are unremarkable. Gallbladder is present. Non obstructive bowel gas pattern. No free air or free fluid. Moderate thoracolumbar spondylosis with chr onic anterior wedging of multiple vertebral bodies in the lower thoracic spine. Bladder is decompress ed limiting evaluation for thickening. IMPRESSION: 1. Decreased size of hypodense fluid collection anterior abdominal wall below the umbilicus measuring 4.1 cm craniocaudal x3.1 cm AP x3.4 cm transverse compared with 7.8 x 3.8 x 5.2 cm on prior examinat ion. This is likely a resolving postoperative hematoma/stroma. Interval near complete resolution of s mall fluid collection above the umbilicus. 2: Nonobstructive bowel pattern. Reviewed, dictated and finalized at location [facility]. IMPRESSION: 1. Decreased size of hypodense fluid collection anterior abdominal wall below t he umbilicus measuring 4.1 cm craniocaudal x3.1 cm AP x3.4 cm transverse compar ed with 7.8 x 3.8 x 5.2 cm on prior examination. This is likely a resolving pos toperative hematoma/stroma. Interval near complete resolution of small fluid co llection above the umbilicus. 2: Nonobstructive bowel pattern.
[2021-12-02 16:08] VITALS: BP 147/95; PULSE 98; RESP 22; TEMP 36.4; O2SAT 100
[2021-12-02 16:29] VITALS: BP 138/89; PULSE 74; RESP 17; O2SAT 99
--- NOTE | 2021-12-02 16:29 | ED.ABDPAIN ---
HPI - Abdominal Pain General Chief Complaint: Abdominal Pain Stated Complaint: abd pain/swelling Time Seen by Provider: 12/02/21 16:15 Source: RN notes reviewed History of Present Illness HPI narrative: Patient presents emergency department from home for abdominal pain. Patient states symptoms been ongoing for the past 1 week. Pain is located left lower quadrant does not radiate. States that it is described as sharp and stabbing and she notes some mild bloating around the area. Patient has a history of a colostomy on 10/25/2021 at [facility] following that she had an episode of wound dehiscence and has a colostomy as well as a wound VAC she states that she has been taking Tylenol at home for the pain with minimal relief. She denies any fevers or chills or diarrhea states she had 1 episode nausea vomiting Related Data Home Medications Medication Instructions Recorded Confirmed metoprolol tartrate 25 mg tablet 12.5 mg PO BID 05/19/21 07/11/21 aripiprazole 2 mg tablet 2 mg DAILY 11/04/21 cyclobenzaprine 10 mg tablet 10 mg TID 11/04/21 famotidine 20 mg tablet 20 mg DAILY 11/04/21 ferrous sulfate 324 mg (65 mg 324 mg PO DAILY 11/04/21 iron) tablet,delayed release oxybutynin chloride 5 mg 5 mg PO 11/04/21 tablet,extended release 24 hr oxycodone 10 mg tablet 10 mg Q4H PRN Pain 11/04/21 Allergies Allergy/AdvReac Type Severity Reaction Status Date / Time Iodine and Iodide Containing Allergy Dyspnea / Verified 12/02/21 16:51 Produc SOB Review of Systems Review of Systems: Gen.: Denies fevers or chills ENT: Denies congestion Respiratory: Denies shortness of breath or cough CV: Denies chest pain or palpitations GI: See HPI Musculoskeletal: Denies back pain or muscle pain Neuro: Denies numbness, tingling, weakness or focal weakness Skin: Denies rash Except as documented, all other systems reviewed and negative [facility] Past Medical History Medical History Adult BMI 60.0-69.9 kg/sq m Anxiety and depression Colostomy in place Fatty liver Hypertension Obstructive sleep apnea Family History Family History Mother Peptic ulcer disease Social History Social History Smoking packs per day: 1 Smoking cigarettes per day: 20.0 Years smoked: 20 Smoking pack-years: 20.00 Smoking status: Current every day smoker Tobacco type: cigarettes Additional smoking assessment comments: patient states she is down to about 2 cigarettes a day now for a year Alcohol intake: current Drinks per week: 28 Substance use: current Substance use type: marijuana Spiritual care concerns: No Exam Narrative: APPEARANCE: No acute distress, nontoxic, resting in bed HEENT: Normocephalic, atraumatic, OMM RESPIRATORY: No respiratory distress, clear to auscultation bilaterally with no rhonchi wheezing or rales CARDIOVASCULAR: RRR s murmur ABDOMINAL: Obese soft tender palpation left lower quadrant left upper quadrant no tenderness right upper quadrant right lower quadrant no rebound or guarding, colostomy present with active drainage no surrounding erythema, wound VAC present currently intact MUSCULOSKELETAl: Moves all extremities. No clubbing, cyanosis or edema. NEURO: Awake and alert. Following commands, speech normal, no focal deficits SKIN:: Warm, dry. Normal Color PSYCHIATRIC: Normal affect/mood Course Course Emergency Course: Patient states her surgeon at [place] is Dr. Nobles Patient states that they are feeling better at this time. States abdominal pain has improved. Repeat abdominal exam shows the patient's abdomen to be soft with no surgical abdomen present. Discussed with patient results of workup and diagnosis. Discussed need for follow-up with primary care physician, reasons to return to the emergency department in proper use of medi
[2021-12-02 16:37] LABS: Basophils Percent Auto 0.6 % (0.2-1.2); Eosinophils Absolute Auto 0.3 K/mm3 (0-0.3); Eosinophils Percent Auto 3.9 % (0-4.4); Hematocrit 35.7 % (37.0-47.0); Hemoglobin 10.7 g/dL (12.0-15.0); Immature Granulocyte Absolute 0.02 K/mm3 (0.00-0.031); Immature Granulocyte Percent A 0.3 % (0-0.5); Lymphocytes Absolute Auto 2.02 K/mm3 (0.9-3.2); Lymphocytes Percent Auto 30.5 % (18.3-44.2); Mean Corpuscular Hemoglobin 24.3 pg (26-34); Mean Platelet Volume 11.6 fl (7.4-10.4); Monocytes Absolute Auto 0.4 K/mm3 (0.1-0.6); Monocytes Percent Auto 5.7 % (2.6-8.5); Neutrophils Absolute Auto 3.9 K/mm3 (1.3-6.7); Platelet Count Result 270 k/mm3 (150-375); Red Blood Count 4.41 M/mm3 (4.2-5.4); Red Cell Distribution Width 21.1 % (11.5-14.5); White Blood Count 6.6 K/mm3 (4.5-10.0)
[2021-12-02 16:48] LABS: Alanine Aminotransferase 17 U/L (6-35); Albumin Level 4.3 g/dL (3.5-5.1); Alkaline Phosphatase 78 U/L (38-126); Anion Gap 10 mmol/L (8-16); Aspartate Amino Transferase 22 U/L (14-36); Bilirubin,Total 0.2 mg/dL (0.2-1.3); Blood Urea Nitrogen 5 mg/dL (7-17); Calcium 9.3 mg/dL (8.4-10.2); Carbon Dioxide 19 mmol/L (22-30); Chloride 109 mmol/L (98-107); Estimated Glomerular Filt Rate > 60; Glucose 100 mg/dL (65-110); Lipase 67 U/L (23-300); Potassium 3.6 mmol/L (3.4-5.0); Sodium 138 mmol/L (137-145)
[2021-12-02] MEDS: SODIUM CHLORIDE 0.9% IV 1,000 ML 999 ML IV CONT (16:51)
[2021-12-02] MEDS: MORPHINE SULFATE (*CRX) 4 MG/ML INJ IV PUSH (16:52)
[2021-12-02 16:56] LABS: Appearance Urine Slightly Cloudy (Clear); Bilirubin Urine Negative (Negative); Blood Urine 3+ (Negative); Glucose Urine UA Negative (Negative); Ketones Urine Negative (Negative); Leukocyte Esterase Ur Negative LEU/UL (Negative); Nitrate Urine Negative (Negative); Protein Urine 1+ mg/dL (Negative); Urobilinogen Urine 0.2 mg/dL (<2.0); pH Urine 6.5 (5.0-9.0)
[2021-12-02 16:58] LABS: Add Urine Microscopic? YES; Color Urine Light Red (Yellow)
[2021-12-02 17:00] LABS: Bacteria Urine Trace /hpf; RBC Urine >75 /hpf (0-2); WBC Urine 21-30 /hpf
[2021-12-02 18:09] VITALS: BP 132/91; PULSE 78; RESP 18; O2SAT 98
== END 2021-12-02 18:11 | disposition home or self-care (01) ==
PROVIDERS: Emergency Provider Emergency Medicine
DX: R10.32 Left lower quadrant pain (principal); F41.9 Anxiety disorder, unspecified; F32.9 Major depressive disorder, single episode, unspecified; I10 Essential (primary) hypertension
CPT/HCPCS: 36415; 74176; 80053; 81001; 81025; 83690; 85025; 87086; 96361; 96374; 99284; J2270; J7030

== ENCOUNTER 2021-12-26 08:40 | Outpatient (CLI) | payer OTHER, SELFPAY ==
--- NOTE | ~2021-12-26 | US_ITS ---
US abdomen complete DATE: 12/26/2021 09:49 INDICATION: Abdominal bloating TECHNIQUE: Real-time imaging of the abdomen, Doppler analysis COMPARISON: 12/02/2021 CT abdomen pelvis FINDINGS: No hepatic or pancreatic space-occupying mass lesion is evident. Normal hepatopedal portal venous flow direction. No gallstones or gallbladder wall thickening or abnormal pericholecystic fluid collection. Common bile duct measures approximately 6 mm. Right kidney measures approximately 11.3 cm length, the left kidney 11.9 cm length. No renal mass les ion or hydronephrosis is evident. Normal caliber of the abdominal aorta. The inferior vena cava areas are unremarkable. Normal splenic size. IMPRESSION: No significant abnormality Reviewed, dictated and finalized at [facility]. Reviewed, dictated and finalized at location [facility]. IMPRESSION: No significant abnormality
== END 2021-12-26 08:41 | disposition home or self-care (01) ==
PROVIDERS: PCP Physician Assistant; Visit Provider Physician Assistant
DX: R14.0 Abdominal distension (gaseous) (principal)
CPT/HCPCS: 76700

== ENCOUNTER 2022-02-21 22:42 | Emergency (ER) | payer OTHER, SELFPAY ==
[2022-02-21 23:31] LABS: Appearance Urine Clear (Clear); Bilirubin Urine Negative (Negative); Blood Urine 2+ (Negative); Color Urine Yellow (Yellow); Glucose Urine UA Negative (Negative); Ketones Urine Negative (Negative); Leukocyte Esterase Ur 3+ LEU/UL (Negative); Nitrate Urine Negative (Negative); Protein Urine Negative (Negative); Specific Grav Ur <= 1.005 (1.001-1.035); Urobilinogen Urine 0.2 mg/dL (<2.0); pH Urine 6.5 (5.0-9.0)
[2022-02-21 23:32] VITALS: BP 151/84; PULSE 75; RESP 20; TEMP 36.4; O2SAT 100
[2022-02-21 23:45] LABS: Bacteria Urine Trace /hpf; Mucus Urine Rare /lpf; RBC Urine 0-2 /hpf (0-2); Squamous Epithelial Cell Urine Rare /hpf (Few); WBC Urine 31-50 /hpf
[2022-02-21 23:47] LABS: Add Urine Microscopic? YES
== END 2022-02-22 04:42 | disposition left against medical advice (07) ==
PROVIDERS: Emergency Provider Emergency Medicine; PCP Physician Assistant
DX: R10.9 Unspecified abdominal pain (principal)
CPT/HCPCS: 81001; 81025; 87077; 87086; 87088; 87186; 99199

== ENCOUNTER 2022-02-24 11:07 | Emergency (ER) | payer OTHER, SELFPAY ==
[2022-02-24 12:19] VITALS: BP 129/94; PULSE 57; RESP 20; TEMP 36.1; O2SAT 100
--- NOTE | 2022-02-24 12:58 | ED.FEMALEGU ---
HPI - Female Genitourinary General Chief complaint: Urogenital-Female Stated complaint: UTI Time Seen by Provider: 02/24/22 12:58 Source: patient, RN notes reviewed and old records reviewed Mode of arrival: ambulatory Limitations: no limitations History of Present Illness HPI Narrative: 32-year-old female presents to the [facility] with complaints of urinary symptoms. She reports low back pain for over a week. Went to the ER on Thursday, waited over 4 hours and left. Patient denies any nausea or vomiting. Went to the ER on Thursday due to upper back pain. Denies any fevers. Related Data Home Medications Medication Instructions Recorded Confirmed metoprolol tartrate 25 mg tablet 12.5 mg PO BID 05/19/21 02/24/22 aripiprazole 2 mg tablet 2 mg DAILY 11/04/21 02/24/22 cyclobenzaprine 10 mg tablet 10 mg TID 11/04/21 02/24/22 famotidine 20 mg tablet 20 mg DAILY 11/04/21 02/24/22 ferrous sulfate 324 mg (65 mg 324 mg PO DAILY 11/04/21 02/24/22 iron) tablet,delayed release oxybutynin chloride 5 mg 5 mg PO DAILY 11/04/21 02/24/22 tablet,extended release 24 hr oxycodone 10 mg tablet 10 mg PO Q4H PRN Pain 11/04/21 02/24/22 Allergies Allergy/AdvReac Type Severity Reaction Status Date / Time Iodine and Iodide Containing Allergy Dyspnea / Verified 02/24/22 13:03 Produc SOB Review of Systems Review of Systems: All systems reviewed & are unremarkable except as noted in HPI and below Constitutional: Constitutional: Reports no additional constitutional complaints, Denies chills and Denies fatigue Eyes: Eyes: Reports no additional eye complaints ENT: Reports system reviewed and no additional complaints, except as documented Cardiovascular: Cardiovascular: Reports no additional cardiovascular complaints Respiratory: Respiratory: Reports no additional respiratory complaints Gastrointestinal: Gastrointestinal: Reports no additional gastrointestinal complaints, Denies abdominal pain, Denies diarrhea, Denies nausea and Denies vomiting Genitourinary: Genitourinary: Reports as per HPI (Urinary frequency), Denies hematuria, Reports dysuria, Denies flank pain and Denies vaginal discharge Musculoskeletal: Musculoskeletal: Reports no additional musculoskeletal complaints and Denies back pain Integumentary/Breasts: Skin/Breast: Reports system reviewed and no additional complaints, except as docu Neurologic: Reports system reviewed and no additional complaints, except as documented Psychiatric: Psychiatric: Reports no additional psychiatric complaints Endocrine: Endocrine: Denies fatigue Allergic/Immunologic: Allergic/Immunologic: Reports no additional allergic/immunologic complaints PMF Past Medical History Medical History Adult BMI 60.0-69.9 kg/sq m Anxiety and depression Colostomy in place Fatty liver Hypertension Obstructive sleep apnea Family History Family History Mother Peptic ulcer disease Social History Social History Smoking packs per day: 1 Smoking cigarettes per day: 20.0 Years smoked: 20 Smoking pack-years: 20.00 Smoking status: Current every day smoker Tobacco type: cigarettes Additional smoking assessment comments: patient states she is down to about 2 cigarettes a day now for a year Alcohol intake: current Drinks per week: 28 Substance use: current Substance use type: marijuana Spiritual care concerns: No Comments At the time of my signature, I reviewed and agree with the nursing past medical, surgical, social, and family history. There is no relevant family history pertinent to the patient complaint. Exam Const: General: healthy appearing, no acute distress and alert Nutritional Appearance: well nourished and obese Orientation/consciousness: patient oriented x3 Limitations: no limitations HENMT: Head: norm
== END 2022-02-24 13:26 | disposition home or self-care (01) ==
PROVIDERS: Emergency Provider Nurse Practitioner; PCP Physician Assistant
DX: N39.0 Urinary tract infection, site not specified (principal); F17.210 Nicotine dependence, cigarettes, uncomplicated; K76.0 Fatty (change of) liver, not elsewhere classified; I10 Essential (primary) hypertension; G47.33 Obstructive sleep apnea (adult) (pediatric)
CPT/HCPCS: 81003; 87077; 87086; 87186; 99213; G0463

== ENCOUNTER 2023-08-31 13:16 | Emergency (ER) | payer BC, SELFPAY ==
[2023-08-31 13:17] VITALS: BP 168/90; PULSE 94; RESP 20; O2SAT 100
--- NOTE | 2023-08-31 14:34 | ED.GENADULT ---
HPI - General Adult General Chief complaint: Unspecified Stated complaint: dental pain/groin abcess Time Seen by Provider: 08/31/23 13:48 History of Present Illness HPI narrative: Patient is a 33-year-old female who presents ER with concerns for infected cyst in her groin. They have been developing over last few days. There is 1 to left upper pubic area that is very tender and indurated. No drainage. There is another line located over the right vulvar area that has spontaneously drained is less tender. She has had a few of these in her lifetime. No additional concerns related to this. Patient also reports some right-sided dental pain. No facial swelling or drainage. No new fracture of her teeth. Related Data Home Medications Medication Instructions Recorded Confirmed metoprolol tartrate 25 mg tablet 12.5 mg PO BID 05/19/21 02/24/22 aripiprazole 2 mg tablet 2 mg DAILY 11/04/21 02/24/22 cyclobenzaprine 10 mg tablet 10 mg TID 11/04/21 02/24/22 famotidine 20 mg tablet 20 mg DAILY 11/04/21 02/24/22 ferrous sulfate 324 mg (65 mg 324 mg PO DAILY 11/04/21 02/24/22 iron) tablet,delayed release oxybutynin chloride 5 mg 5 mg PO DAILY 11/04/21 02/24/22 tablet,extended release 24 hr oxycodone 10 mg tablet 10 mg PO Q4H PRN Pain 11/04/21 02/24/22 Allergies Allergy/AdvReac Type Severity Reaction Status Date / Time Iodine and Iodide Containing Allergy Dyspnea / Verified 08/31/23 14:15 Produc SOB Review of Systems Constitutional: Constitutional: Denies chills and Denies fever(s) Genitourinary: Genitourinary: Reports no additional female genitourinary complaints Musculoskeletal: Musculoskeletal: Reports no additional musculoskeletal complaints Integumentary/Breasts: Skin/Breast: Reports furuncle, Reports erythema and Denies rash PMFSH Past Medical History Medical History (Updated 08/31/23 @ 14:36 by Greg Guadalupe MD) Adult BMI 60.0-69.9 kg/sq m Anxiety and depression Fatty liver Hypertension Obstructive sleep apnea Surgical History Surgical History (Updated 08/31/23 @ 18:49 by Greg Guadalupe MD) Colostomy in place History of partial colectomy Family History Family History Mother Peptic ulcer disease Social History Social History Smoking packs per day: 1 Smoking cigarettes per day: 20.0 Years smoked: 20 Smoking pack-years: 20.00 Smoking status: Current every day smoker Tobacco type: cigarettes Additional smoking assessment comments: patient states she is down to about 2 cigarettes a day now for a year Alcohol intake: current Drinks per week: 28 Substance use: current Substance use type: marijuana Spiritual care concerns: No Exam Narrative: GENERAL: Well-appearing, well-nourished, and in no acute distress. HEAD: Normocephalic, atraumatic. ENT: Mucous membranes moist. NECK: Supple. CHEST: Clear to auscultation. No respiratory distress. HEART: Regular rate and rhythm. Normal peripheral pulses. ABDOMEN: Soft, nontender, nondistended. EXTREMITIES: Normal range of motion. No edema. SKIN: Warm, dry, no rash. infected cyst of the suprapubic region on left side with induration and fluctuance and no drainage. Right vulvar cysts is draining nontender and no induration. NEURO: Alert and oriented x3. PSYCH: Normal mood and affect. Course Course Emergency Course: only 1 area required intervention. No obvious dental abscess. Appropriate for discharge home with supportive medications including Wallace/Bactrim. Vital Signs Vital signs: Vital Signs Pulse Rate 94 08/31/23 13:17 Respiratory Rate 20 08/31/23 13:17 Blood Pressure 168/90 H 08/31/23 13:17 Pulse Oximetry 100 08/31/23 13:17 Oxygen Delivery Room Air 08/31/23 13:17 Pulse Rate 94 08/31/23 13:17 Respiratory Rate 20 08/31/23 13:17 Blood Pressure 168/90 H 08/31/23 1
== END 2023-08-31 14:51 | disposition home or self-care (01) ==
PROVIDERS: Emergency Provider Emergency Medicine; PCP Physician Assistant
DX: L02.214 Cutaneous abscess of groin (principal); K08.89 Other specified disorders of teeth and supporting structures; I10 Essential (primary) hypertension; G47.33 Obstructive sleep apnea (adult) (pediatric); Z90.49 Acquired absence of other specified parts of digestive tract; F41.9 Anxiety disorder, unspecified; F32.A Depression, unspecified; F17.210 Nicotine dependence, cigarettes, uncomplicated
CPT/HCPCS: 10061; 41800; 99283

== ENCOUNTER 2024-03-11 12:50 | Emergency (ER) | payer BC, SELFPAY ==
[2024-03-11 13:02] VITALS: BP 188/111; PULSE 99; RESP 19; TEMP 36.2; O2SAT 99
--- NOTE | 2024-03-11 13:54 | ED.DIZZY ---
HPI - Dizziness General Chief Complaint: Dizziness <JENNI Silvestre Last Filed: 03/11/24 14:07> Stated Complaint: dizziness, palpitations, abscess in jaw <JENNI Silvestre Last Filed: 03/11/24 14:07> Time Seen by Provider: 03/11/24 13:55 <JENNI Silvestre Last Filed: 03/11/24 14:07> Focused HPI: Patient is a 34 y/o female who presents to the ED with c/o dizziness. Patient reports she was sitting down at work around 1130 am this morning when she suddenly became dizzy, lightheaded, sweaty, SOB, had CP. Episode lasted approx 1 hour. She then prompted here. States dizziness has been intermittent since then. No aggravating or alleviating factors. Denies current CP. Denies N/V, vision changes, focal weakness/numbness. Patient also reports R lower dental pain. Had the tooth pulled 1 month ago. Reports she woke up this morning with recurrent pain and swelling. Concerned for abscess. Patient mentions she had an extremely heavy period last month. Has had intermittent bleeding since then. Hx of anemia. Patient is a daily drinker. Drinks at least a fifth of vodka per day. Last drank last night. Denies hx of WD sx's or szs. GENERAL: Mildly pale-appearing, morbidly obese with BMI of 54.5, and in no acute distress. HEAD: Normocephalic, atraumatic. ENT: Small abscess to R lower tooth, #28, in area of previous dental extraction. Actively draining. CHEST: Clear to auscultation. ?No respiratory distress. HEART: Regular rate and rhythm.? NEURO: ?Alert and oriented x3. No gross focal deficits. Patient screened in triage and initial orders placed.? ?Additional care and disposition to be based upon?diagnostic testing and treatment. <JENNI Silvestre Last Filed: 03/11/24 14:07> Source: patient <JENNI Silvestre Filed: 03/11/24 14:07> Mode of arrival: ambulatory <JENNI Silvestre Last Filed: 03/11/24 14:07> Limitations: no limitations <Mary Carrillo PA-C - Last Filed: 03/11/24 14:07> History of Present Illness HPI Narrative: Agree with HPI. Daily drinker. Developed sudden dizziness fall or with sweatiness and nausea. Flaccid an hour. Patient also reports dental pain had previous dental extraction site. She is developing swelling. <Greg Guadalupe MD - Last Filed: 03/11/24 18:24> Related Data Home Medications: Home Medications Medication Instructions Recorded Confirmed metoprolol tartrate 25 mg tablet 12.5 mg PO BID 05/19/21 02/24/22 aripiprazole 2 mg tablet 2 mg DAILY 11/04/21 02/24/22 cyclobenzaprine 10 mg tablet 10 mg TID 11/04/21 02/24/22 famotidine 20 mg tablet 20 mg DAILY 11/04/21 02/24/22 ferrous sulfate 324 mg (65 mg 324 mg PO DAILY 11/04/21 02/24/22 iron) tablet,delayed release oxybutynin chloride 5 mg 5 mg PO DAILY 11/04/21 02/24/22 tablet,extended release 24 hr oxycodone 10 mg tablet 10 mg PO Q4H PRN Pain 11/04/21 02/24/22 <Mary Carrillo PA-C - Last Filed: 03/11/24 14:07> Allergies/Adverse Reactions: Allergies Allergy/AdvReac Type Severity Reaction Status Date / Time Iodine and Iodide Containing Allergy Dyspnea / Verified 03/11/24 13:11 Produc SOB <Mary Carrillo PA-C - Last Filed: 03/11/24 14:07> Review of Systems Review of Systems: All systems reviewed & are unremarkable except as noted in HPI and below <Greg Guadalupe MD - Last Filed: 03/11/24 18:24> Constitutional: Constitutional: Reports no additional constitutional complaints <Greg Guadalupe MD - Last Filed: 03/11/24 18:24> ENT: Reports system reviewed and no additional complaints, except as documented <Greg Guadalupe MD - Last Filed: 03/11/24 18:24> Cardiovascular: Cardiovascular: Reports no additional cardiovascular complaints <Greg Guadalupe MD - Last Filed: 03/11/24 18:24> Respiratory: Respiratory: Reports no additional respiratory complaints <Greg Guadalupe MD - [place]
--- NOTE | 2024-03-11 13:55 | ECG_ITS ---
Test Date: 2024-03-11 14:11:27 Measurements Intervals [place] Rate: 79 P: 26 ND: 156 QRS: -6 QRSD: 92 T: -20 QT: 376 QTc: 432 Interpretive Statements SINUS RHYTHM DELAYED PRECORDIAL R/S TRANSITION MINIMAL Q WAVES- HIGH LATERAL LEADS ST-T WAVE ABNORMALITY IN INFERIOR LEADS- CONSIDER ISCHEMIA ABNORMAL ECG No previous ECG available for comparison Electronically Signed On 03-11-2024 14:15:23 CDT by Augie Hollins D.O.
[2024-03-11 14:07] LABS: Basophils Absolute Auto 0.1 K/mm3 (0.0-0.1); Basophils Percent Auto 0.6 % (0.2-1.2); Eosinophils Absolute Auto 0.2 K/mm3 (0-0.3); Eosinophils Percent Auto 2.5 % (0-4.4); Hematocrit 42.2 % (37.0-47.0); Hemoglobin 13.1 g/dL (12.0-15.0); Immature Granulocyte Absolute 0.03 K/mm3 (0.00-0.031); Immature Granulocyte Percent A 0.4 % (0-0.5); Lymphocytes Absolute Auto 1.47 K/mm3 (0.9-3.2); Lymphocytes Percent Auto 17.7 % (18.3-44.2); Mean Corpuscular Hemoglobin 26.9 pg (26-34); Mean Corpuscular Volume 86.7 fl (80-100); Mean Platelet Volume 12.7 fl (7.4-10.4); Monocytes Absolute Auto 0.5 K/mm3 (0.1-0.6); Monocytes Percent Auto 5.7 % (2.6-8.5); Neutrophils Absolute Auto 6.1 K/mm3 (1.3-6.7); Neutrophils Percent Auto 73.1 % (45.5-73.1); Platelet Count Result 138 k/mm3 (150-375); Red Blood Count 4.87 M/mm3 (4.2-5.4); Red Cell Distribution Width 18.8 % (11.5-14.5); White Blood Count 8.3 K/mm3 (4.5-10.0)
[2024-03-11 14:14] LABS: Alanine Aminotransferase 44 U/L (6-35); Albumin Level 4.4 g/dL (3.5-5.1); Alkaline Phosphatase 112 U/L (38-126); Anion Gap 11 mmol/L (4-12); Aspartate Amino Transferase 90 U/L (14-36); Bilirubin,Total 0.4 mg/dL (0.2-1.3); Blood Urea Nitrogen 4 mg/dL (7-17); Carbon Dioxide 23 mmol/L (22-30); Chloride 101 mmol/L (98-107); Estimated CRCL calculation 252 ml/min; Estimated Glomerular Filt Rate > 60; Glucose 207 mg/dL (65-110); Magnesium 1.8 mg/dL (1.6-2.3); Potassium 4.1 mmol/L (3.4-5.0); Sodium 135 mmol/L (137-145)
[2024-03-11 14:16] LABS: Ethanol < 10 mg/dL (<10)
[2024-03-11 14:22] LABS: Partial Thromboplastin Time 32.9 Seconds (22.3-36.8)
[2024-03-11 14:25] LABS: Troponin I 0.013 ng/mL (0.000-0.034)
--- NOTE | 2024-03-11 15:03 | PC.NURSE ---
pt c/o 5/10 back pain and 4/10 jaw pain from an abscess
[2024-03-11] MEDS: AMOXICILLIN/CLAVULANATE K 875-125 MG TAB 1 TABLET PO (15:21)
[2024-03-11] MEDS: MECLIZINE HCL 25 MG TABLET PO (15:21)
[2024-03-11] MEDS: SODIUM CHLORIDE 0.9% IV 1,000 ML 999 ML IV CONT ×2 (15:22)
[2024-03-11 15:44] LABS: Add Urine Microscopic? YES; Appearance Urine Clear (Clear); Bacteria Urine None Seen /hpf; Bilirubin Urine Negative (Negative); Blood Urine 3+ (Negative); Color Urine Yellow (Yellow); Glucose Urine UA 3+ mg/dL (Negative); Ketones Urine Trace mg/dL (Negative); Leukocyte Esterase Ur Negative LEU/UL (Negative); Nitrate Urine Negative (Negative); Non Pathogenic Casts 0-2; Protein Urine 1+ mg/dL (Negative); RBC Urine >100 /hpf (0-2); Specific Grav Ur 1.024 (1.001-1.035); Squamous Epithelial Cell Urine Occasional /hpf (Few); WBC Urine 0-5 /hpf (0-3)
[2024-03-11 17:25] VITALS: BP 151/95; PULSE 76; RESP 23; O2SAT 99
[2024-03-11 18:18] VITALS: BP 156/87; PULSE 87; RESP 18; O2SAT 97
== END 2024-03-11 18:22 | disposition home or self-care (01) ==
PROVIDERS: Physician Assistant; Emergency Provider Emergency Medicine
DX: R42 Dizziness and giddiness (principal); K08.89 Other specified disorders of teeth and supporting structures; I10 Essential (primary) hypertension; G47.33 Obstructive sleep apnea (adult) (pediatric); F17.210 Nicotine dependence, cigarettes, uncomplicated; F41.9 Anxiety disorder, unspecified; F32.A Depression, unspecified; Z90.49 Acquired absence of other specified parts of digestive tract; Z79.899 Other long term (current) drug therapy; R94.31 Abnormal electrocardiogram [ECG] [EKG]
CPT/HCPCS: 36415; 80053; 80307; 81001; 83735; 84484; 85025; 85610; 85730; 93005; 96360; 96361; 99284; A9270; J7030